=== PATIENT | female | born 1940 | race African-American/Black ===

== ENCOUNTER 2017-06-09 16:08 | Emergency (ER) | payer MEDICARE, OTHER ==
[~2017-06-09] VITALS: Ht 167.6 cm; Wt 77.0 kg
[2017-06-09 16:10] VITALS: BP 157/77; PULSE 97; RESP 20; TEMP 98.7; O2SAT 98
[2017-06-09] MEDS ORDERED: DORZ2SOL15 EACH EYE (17:04)
[2017-06-09] MEDS ORDERED: LATA0.002 EACH EYE (17:04)
[2017-06-09 18:15] VITALS: BP_SYST 166; BP_SYST 172; BP_DIAS 80; BP_DIAS 83; PULSE 76; RESP 18; O2SAT 99
--- NOTE | 2017-06-09 18:30 | PD ---
HPI Chief Complaint: Altered Mental Status Time Seen by Provider: 18:28 Travel History International Travel<30 days: No Contact w/Intl Traveler<30days: No Traveled to known affect area: No History of Present Illness HPI Patient is 76-year-old female brought in by her nephew and a friend for evaluation of altered mental status. Patient has a history of dementia, for the last week or so she has become more confused, they report visual hallucinations. Grandson states that she gets lost in the home and sees things that aren't there. He reports a history of the same. They saw the primary doctor 1 week ago and discussed this, they were advised to come to the emergency department for evaluation if she got worse. Patient has not had any injury or trauma, no fevers. Patient denies any complaints at this time. PFS Past Medical History Dementia: Yes Diabetes: Yes Patient Takes Glucophage: No Diminished Hearing: No Glaucoma: Yes ?: Not Past Surgical History Hysterectomy: Yes Social History Alcohol Use: No Tobacco Use: No Substance Use: No Allergies-Medications (Allergen,Severity, Reaction): Coded Allergies: No Known Allergies (Unverified , 06/09/17) Reported Meds & Prescriptions Reported Meds & Active Scripts Active Reported Dorzolamide-Timolol Opth Drops 22.3-6.8 Mg/Ml Soln 1 Drop EACH EYE BID Latanoprost Opth Drops (Latanoprost) 0.005% Drops 1 Drop EACH EYE HS Refrigerate until opened. Review of Systems ROS Limitations: Poor Historian Except as stated in HPI: all other systems reviewed are Neg Psychiatric: Positive: Disorder of Thought Physical Exam Narrative GENERAL: Well-developed, well-nourished, alert elderly female. Resting comfortably in no acute distress. SKIN: Warm and dry. HEAD: Atraumatic. Normocephalic. EYES: Pupils equal and round. No scleral icterus. No injection or drainage. ENT: No nasal bleeding or discharge. Mucous membranes pink and moist. NECK: Trachea midline. No JVD. CARDIOVASCULAR: Regular rate and rhythm. RESPIRATORY: No accessory muscle use. Clear to auscultation. Breath sounds equal bilaterally. GASTROINTESTINAL: Abdomen soft, non-tender, nondistended. Hepatic and splenic margins not palpable. MUSCULOSKELETAL: Extremities without clubbing, cyanosis, or edema. No obvious deformities. NEUROLOGICAL: Awake and alert, oriented 2. No obvious cranial nerve deficits. Motor grossly within normal limits. Five out of 5 muscle strength in the arms and legs. Normal speech. PSYCHIATRIC: Appropriate mood and affect; insight and judgment impaired. Data Data Last Documented VS Vital Signs Date Time Temp Pulse Resp B/P Pulse Ox O2 Delivery O2 Flow Rate FiO2 06/09/17 18:15 76 18 166/83 99 Room Air 06/09/17 16:10 98.7 Orders Complete Blood Count With Diff (06/09/17 18:16) Comprehensive Metabolic Panel (06/09/17 18:16) Urinalysis - C+S If Indicated (06/09/17 18:16) Ecg Monitoring (06/09/17 18:16) Iv Access Insert/Monitor (06/09/17 18:16) Cath For Specimen (06/09/17 18:16) Oximetry (06/09/17 18:16) Chest, Single Ap (06/09/17 ) Ct Brain W/O Iv Contrast(Rout) (06/09/17 ) Ct Thorax/ Chest W Iv Contrast (06/09/17 ) Thyroid Stimulating Hormone (06/09/17 19:23) Iohexol 350 Inj (Omnipaque 350 Inj) (06/09/17 19:47) Labs Laboratory Tests Test 06/09/17 06/09/17 18:15 19:35 White Blood Count 5.1 TH/MM3 Red Blood Count 4.15 MIL/MM3 Hemoglobin 11.5 GM/DL Hematocrit 36.2 % Mean Corpuscular Volume 87.2 FL Mean Corpuscular Hemoglobin 27.8 PG Mean Corpuscular Hemoglobin 31.9 % Concent Red Cell Distribution Width 17.3 % Platelet Count 275 TH/MM3 Mean Platelet Volume 7.7 FL Neutrophils (%) (Auto) 52.6 % Lymphocytes (%) (Auto) 32.0 % Monocytes (%) (Auto) 11.0 % Eosinophils (%) (Auto) 3.4 % Basophils (%) (Auto) 1.0 % Neutrophils # (Auto) 2.7 TH/MM3 Lymphocytes # (Auto) 1.6 TH/MM3 Monocytes # (Auto) 0.6 TH/MM3 Eosinophils # (Auto) 0.2 TH/MM3 Basophils # (Auto) 0.1 TH/MM3 CBC Comment DIFF FINAL Differential Comment Urine Color YELLOW Urine Turbidity CLEAR Urine pH 5.5 Urine Specific [place] 1.025 Urine Protein TRACE mg/dL Urine Glucose (UA) NEG mg/dL Urine Ketones NEG mg/dL Urine Occult Blood MOD Urine Nitrite NEG Urine Bilirubin NEG Urine Urobilinogen 2.0 MG/DL Urine Leukocyte Esterase NEG Urine RBC 30 /hpf Urine WBC 2 /hpf Urine Mucus FEW /lpf Microscopic Urinalysis Comment CATH-CULT NOT IND Sodium Level 142 MEQ/L Potassium Level 3.3 MEQ/L Chloride Level 105 MEQ/L Carbon Dioxide Level 29.7 MEQ/L Anion Gap 7 MEQ/L Blood Urea Nitrogen 22 MG/DL Creatinine 0.66 MG/DL Estimat Glomerular Filtration 106 ML/MIN Rate Random Glucose 96 MG/DL Calcium Level 8.9 MG/DL Total Bilirubin 0.3 MG/DL Aspartate Amino Transf 31 U/L (AST/SGOT) Alanine Aminotransferase 40 U/L (ALT/SGPT) Alkaline Phosphatase 220 U/L Total Protein 7.4 GM/DL Albumin 2.9 GM/DL Thyroid Stimulating Hormone 0.855 uIU/ML [facility] Medical Decision Making Medical Screen Exam Complete: Yes Emergency Medical Condition: Yes Interpretation(s) Last Impressions Head CT 06/09/17 0000 Signed Impressions: Service Date/Time: Friday, June 09, 2017 18:47 - CONCLUSION: Normal examination for a patient of this age. Arnulfo Andrew MD Chest X-Ray 06/09/17 0000 Signed Impressions: Service Date/Time: Friday, June 09, 2017 18:23 - CONCLUSION: There does appear to be mass effect on the trachea deviated to the right of midline. This can be further characterize with CT chest with contrast if indicated. Arnulfo Andrew MD Last Impressions Head CT 06/09/17 0000 Signed Impressions: Service Date/Time: Friday, June 09, 2017 18:47 - CONCLUSION: Normal examination for a patient of this age. Arnulfo Andrew MD Chest X-Ray 06/09/17 0000 Signed Impressions: Service Date/Time: Friday, June 09, 2017 18:23 - CONCLUSION: There does appear to be mass effect on the trachea deviated to the right of midline. This can be further characterize with CT chest with contrast if indicated. Arnulfo Andrew MD Laboratory Tests Test 06/09/17 18:15 White Blood Count 5.1 TH/MM3 Red Blood Count 4.15 MIL/MM3 Hemoglobin 11.5 GM/DL Hematocrit 36.2 % Mean Corpuscular Volume 87.2 FL Mean Corpuscular Hemoglobin 27.8 PG Mean Corpuscular Hemoglobin 31.9 % Concent Red Cell Distribution Width 17.3 % Platelet Count 275 TH/MM3 Mean Platelet Volume 7.7 FL Neutrophils (%) (Auto) 52.6 % Lymphocytes (%) (Auto) 32.0 % Monocytes (%) (Auto) 11.0 % Eosinophils (%) (Auto) 3.4 % Basophils (%) (Auto) 1.0 % Neutrophils # (Auto) 2.7 TH/MM3 Lymphocytes # (Auto) 1.6 TH/MM3 Monocytes # (Auto) 0.6 TH/MM3 Eosinophils # (Auto) 0.2 TH/MM3 Basophils # (Auto) 0.1 TH/MM3 CBC Comment DIFF FINAL Differential Comment Urine Color YELLOW Urine Turbidity CLEAR Urine pH 5.5 Urine Specific [place] 1.025 Urine Protein TRACE mg/dL Urine Glucose (UA) NEG mg/dL Urine Ketones NEG mg/dL Urine Occult Blood MOD Urine Nitrite NEG Urine Bilirubin NEG Urine Urobilinogen 2.0 MG/DL Urine Leukocyte Esterase NEG Urine RBC 30 /hpf Urine WBC 2 /hpf Urine Mucus FEW /lpf Microscopic Urinalysis Comment CATH-CULT NOT IND Sodium Level 142 MEQ/L Potassium Level 3.3 MEQ/L Chloride Level 105 MEQ/L Carbon Dioxide Level 29.7 MEQ/L Anion Gap 7 MEQ/L Blood Urea Nitrogen 22 MG/DL Creatinine 0.66 MG/DL Estimat Glomerular Filtration 106 ML/MIN Rate Random Glucose 96 MG/DL Calcium Level 8.9 MG/DL Total Bilirubin 0.3 MG/DL Aspartate Amino Transf 31 U/L (AST/SGOT) Alanine Aminotransferase 40 U/L (ALT/SGPT) Alkaline Phosphatase 220 U/L Total Protein 7.4 GM/DL Albumin 2.9 GM/DL Vital Signs Date Time Temp Pulse Resp B/P Pulse Ox O2 Delivery O2 Flow Rate FiO2 06/09/17 18:15 76 18 166/83 99 Room Air 06/09/17 16:10 98.7 97 20 157/77 98 Room Air Differential Diagnosis Progression of dementia versus UTI versus infection versus metabolic abnormality versus other Narrative Course Patient is a 76-year-old female brought into the emergency room for evaluation of increased confusion. Patient's vital signs are stable, family at bedside. IV access established, patient was on telemetry monitoring and continuous pulse oximetry. CT scan the brain is normal for patient's age. Urinalysis is unremarkable Chemistry with a potassium of 3.3, BUN 22, alkaline phosphatase 220 CBC is unremarkable. Chest x-ray read by the radiologist shows mass effect, trachea deviated to the right of midline, this could be further characterized with CT of the chest if needed. CT scan of the chest ordered and pending. Likely a thyroid issue. TSH also ordered and pending. CT scan of the chest shows enlarged heterogeneous multinodular thyroid with a large inhomogeneous lobulated left thyroid mass demonstrated mass effect on the trachea. There is nonspecific adenopathy in the mediastinum and hilar regions and also shows atherosclerosis. CT scan of the chest was read by the radiologist. Patient's airway is intact, there is no stridor noted on exam. Patient is well oxygenated on room air. Patient was given a copy to take to primary care provider. She should have outpatient follow-up with ENT. Also discussed with caregiver at bedside that there were no acute findings other than the thyroid masses. Again they were encouraged to follow up with primary care provider. They were encouraged to return to emergency department today be any new or worsening symptoms. Patient stable for discharge. Diagnosis Primary Impression: Thyroid mass of unclear etiology Additional Impression: Dementia Qualified Code: F03.90 - Dementia without behavioral disturbance, unspecified dementia type Referrals: Primary Care Physician 2 days Patient Instructions: Dementia (ED), General Instructions Additional Instructions: Follow-up with your primary doctor to review CT scan results and for routine health care Return to emergency department for any new or worsening symptoms Med/Other Pt SpecificInfo: No Change to Meds Disposition: 01 DISCHARGE HOME Condition: Stable Kavitha Kiser Jun 09, 2017 18:30
[2017-06-09 18:44] LABS: BLOOD, URINE MOD (NEG); COMMENT (UR) CATH-CULT NOT IND; CULTURE IF INDICATED CATH CULTURE NOT IND; GLUCOSE,URINE NEG (NEG); KETONE, URINE NEG (NEG); MUCUS URINE FEW /lpf (OCC); NITRITE,URINE NEG (NEG); PH, URINE 5.5 (5.0-8.5); URINE COLOR YELLOW (YELLW/STRAW)
[2017-06-09 18:48] LABS: AUTOMATED NEUTROPHIL # 2.7 TH/MM3 (1.8-7.7); BASOPHIL # 0.1 TH/MM3 (0-0.2); EOSINOPHIL # 0.2 TH/MM3 (0-0.4); EOSINOPHIL % 3.4 % (0.0-4.0); HEMATOCRIT 36.2 % (35.0-46.0); HEMO FLAGS DIFF FINAL; LYMPHOCYTE # 1.6 TH/MM3 (1.0-4.8); MEAN CELL VOLUME 87.2 FL (80.0-100.0); MEAN CORPUSCULAR HEMOGLOBIN 27.8 PG (27.0-34.0); MEAN CORPUSCULAR HGB CONC 31.9 % (32.0-36.0); NEUT % 52.6 % (16.0-70.0); PLATELET COUNT 275 TH/MM3 (150-450); RED BLOOD COUNT 4.15 MIL/MM3 (4.00-5.30); RED CELL DISTRIBUTION WIDTH 17.3 % (11.6-17.2); WHITE BLOOD COUNT 5.1 TH/MM3 (4.0-11.0)
[2017-06-09 18:58] LABS: ALT (GPT) 40 U/L (10-53); ANION GAP 7 MEQ/L (5-15); AST (GOT) 31 U/L (15-37); BICARBONATE 29.7 MEQ/L (21.0-32.0); BLOOD UREA NITROGEN 22 MG/DL (7-18); CHLORIDE 105 MEQ/L (98-107); GLOMERULAR FILTRATION RATE 106 ML/MIN (>89); POTASSIUM 3.3 MEQ/L (3.5-5.1); SODIUM (NA) 142 MEQ/L (136-145)
[2017-06-09 19:01] LABS: ALKALINE PHOSPHATASE 220 U/L (45-117); TOTAL BILIRUBIN ADULT 0.3 MG/DL (0.2-1.0)
--- NOTE | 2017-06-09 19:06 | RADRPT ---
EXAM DATE/TIME: 06/09/2017 18:47 [facility] COMPARISON: No previous studies available for comparison. INDICATIONS : Altered mental status. RADIATION DOSE: 31.31 CTDIvol (mGy) MEDICAL HISTORY : Dementia. Diabetes mellitus type 2. SURGICAL HISTORY : Hysterectomy. ENCOUNTER: Initial ACUITY: 1 day PAIN SCALE: 0/10 LOCATION: cranial TECHNIQUE: Multiple contiguous axial images were obtained of the head. Using automated exposure control and adj ustment of the mA and/or kV according to patient size, radiation dose was kept as low as reasonably a chievable to obtain optimal diagnostic quality images. DICOM format image data is available electro nically for review and comparison. FINDINGS: CEREBRUM: The ventricles are normal for age. No evidence of midline shift, mass lesion, hemorrhage or acute in farction. No extra-axial fluid collections are seen. POSTERIOR FOSSA: The cerebellum and brainstem are intact. The 4th ventricle is midline. The cerebellopontine angle i s unremarkable. EXTRACRANIAL: The visualized portion of the orbits is intact. SKULL: The calvaria is intact. No evidence of skull fracture. CONCLUSION: Normal examination for a patient of this age. Arnulfo Andrew MD on June 09, 2017 at 19:05 Board Certified Radiologist. This report was verified electronically.
--- NOTE | 2017-06-09 19:09 | RADRPT ---
EXAM DATE/TIME: 06/09/2017 18:23 [facility] COMPARISON: No previous studies available for comparison. INDICATIONS : Cough. MEDICAL HISTORY : None. SURGICAL HISTORY : None. ENCOUNTER: Initial ACUITY: 1 day PAIN SCORE: 0/10 LOCATION: Bilateral upper chest FINDINGS: The heart size is normal. The lungs are clear. There is slight deviation of the trachea to the right of midline with increased density on the left of the trachea at the thoracic inlet. There is no defin ite patient rotation to account for this finding therefore a mass cannot be excluded, most likely thy roid etiology. This can be confirmed with CT scan if indicated. CONCLUSION: There does appear to be mass effect on the trachea deviated to the right of midline. This can be furt her characterize with CT chest with contrast if indicated. Arnulfo Andrew MD on June 09, 2017 at 19:07 Board Certified Radiologist. This report was verified electronically.
[2017-06-09] MEDS ORDERED: IOHEXOL 350 MG/ML 10 ML VIAL (for RAD DIAG) IV ONE (19:47)
--- NOTE | 2017-06-09 20:01 | RADRPT ---
EXAM DATE/TIME: 06/09/2017 19:46 [facility] COMPARISON: CHEST SINGLE AP, June 09, 2017, 18:23. INDICATIONS : Short of breath. IV CONTRAST: 70 cc Omnipaque 350 (iohexol) IV RADIATION DOSE: 6.44 CTDIvol (mGy) MEDICAL HISTORY : Dementia. Diabetes mellitus type 2. SURGICAL HISTORY : Hysterectomy. ENCOUNTER: Initial ACUITY: 1 day PAIN SCALE: 2/10 LOCATION: Bilateral chest TECHNIQUE: Volumetric scanning of the chest was performed. Using automated exposure control and adjustment of t he mA and/or kV according to patient size, radiation dose was kept as low as reasonably achievable to obtain optimal diagnostic quality images. DICOM format image data is available electronically for review and comparison. Follow-up recommendations for incidentally detected pulmonary nodules are based at a minimum on nodul e size and patient risk factors according to Fleischner Society Guidelines. FINDINGS: Minimal linear scarring or atelectasis at the left lung base. There is marked enlargement of the thyr oid with mass effect on the trachea deviated slightly to the right corresponding to the plain radiogr aphic findings. There is a large heterogeneous mass of the left thyroid lobe measuring 3.4 x 5.7 cm i n transverse and AP dimension. There is also a 1.4 cm right thyroid nodule and a 5.1 mm right thyroid nodule. There is subcarinal adenopathy up to 1.3 cm in short axis dimension, right and left hilar ad enopathy measuring 1.9 and 1.5 cm in short axis dimension respective. Atherosclerotic calcifications of the aorta are noted. Osseous structures are intact. Coronary artery calcification identified. CONCLUSION: 1. Enlarged heterogeneous multinodular thyroid with a large inhomogeneous lobulated left thyroid mass demonstrating mass effect on the trachea. 2. There is nonspecific adenopathy in the mediastinum and hilar regions. 3. Atherosclerosis. Arnulfo Andrew MD on June 09, 2017 at 19:58 Board Certified Radiologist. This report was verified electronically.
== END 2017-06-09 21:10 | disposition home or self-care (01) ==
LOC: NEPC 16:08
DX: R22.1 Localized swelling, mass and lump, neck (principal); R41.82 Altered mental status, unspecified; F03.90 Unspecified dementia, unspecified severity, without behavioral disturbance, psychotic disturbance, mood disturbance, and anxiety; E11.9 Type 2 diabetes mellitus without complications; H40.9 Unspecified glaucoma; Z79.899 Other long term (current) drug therapy
CPT/HCPCS: 70450; 71010; 71260; 80053; 81001; 84443; 85025; 99285; P9612; Q9967

== ENCOUNTER 2017-06-12 17:46 | Observation (INO) | payer OTHER ==
[~2017-06-12] VITALS: Ht 167.6 cm; Wt 57.7 kg
[~2017-06-12 17:46] MED LIST: DORZ2SOL15 EACH EYE; LATA0.002 EACH EYE
[2017-06-12 17:54] VITALS: BP 149/72; PULSE 99; RESP 14; TEMP 99.2; O2SAT 96
[2017-06-12] MEDS ORDERED: SODIUM CHLOR 0.9% 1000 ML INJ 1,000 ML IV SCH (18:14)
[2017-06-12] MEDS ORDERED: SODIUM CHLORIDE 0.9% FLUSH 5 ML FLUSH IV FLUSH PRN (18:15)
[2017-06-12] MEDS ORDERED: RISP2TAB2 PO (18:16)
--- NOTE | 2017-06-12 18:26 | PD ---
HPI Chief Complaint: Altered Mental Status Time Seen by Provider: 18:01 Travel History International Travel<30 days: No Contact w/Intl Traveler<30days: No Traveled to known affect area: No History of Present Illness HPI Patient is a 76-year-old female who is brought in by her grandson because she is hallucinating. Patient was seen at the [facility] 3 days ago and discharged home. She had a CT head, CT chest, chest x-ray, lab work that showed no acute abnormalities. The CT of her chest did show several thyroid masses, which family was informed of and advised follow-up with her PCP. Her grandson states she is still hallucinating. He says he cannot take care of her at home. She has no complaints. She denies any pain. Her grandson states that she said people in the house trying to shoot at her, that were not. PFSH Past Medical History Dementia: Yes Diabetes: Yes Diminished Hearing: No Glaucoma: Yes Past Surgical History Hysterectomy: Yes Social History Alcohol Use: No Tobacco Use: No Substance Use: No Allergies-Medications (Allergen,Severity, Reaction): Coded Allergies: Penicillin (Verified Allergy, Severe, 06/12/17) Reported Meds & Prescriptions Reported Meds & Active Scripts Active Reported Risperidone 2 Mg Tab 2 Mg PO HS Dorzolamide-Timolol Opth Drops 22.3-6.8 Mg/Ml Soln 1 Drop EACH EYE BID Latanoprost Opth Drops (Latanoprost) 0.005% Drops 1 Drop EACH EYE HS Refrigerate until opened. Review of Systems Except as stated in HPI: all other systems reviewed are Neg General / Constitutional: No: Fever, Chills HENT: No: Headaches, Lightheadedness Cardiovascular: No: Chest Pain or Discomfort Respiratory: No: Shortness of Breath Gastrointestinal: No: Nausea, Vomiting, Abdominal Pain Genitourinary: No: Dysuria Musculoskeletal: No: Myalgias Skin: No Rash, No Change in Pigmentation Neurologic: No: Weakness, Dizziness Physical Exam Narrative GENERAL: Awake and alert, in no acute distress. Has an odor of urine, unkept. SKIN: Focused skin assessment warm/dry. No rashes or signs of infection. HEAD: Atraumatic. Normocephalic. EYES: Pupils equal and round. No scleral icterus. ENT: Mucous membranes pink and moist. NECK: Trachea midline. No JVD. CARDIOVASCULAR: Regular rate and rhythm. No murmur appreciated. RESPIRATORY: No accessory muscle use. Clear to auscultation. Breath sounds equal bilaterally. GASTROINTESTINAL: Abdomen soft, non-tender, nondistended. MUSCULOSKELETAL: No obvious deformities. No clubbing. No cyanosis. No edema. NEUROLOGICAL: Awake and alert. No obvious cranial nerve deficits. Motor grossly within normal limits. Normal speech. PSYCHIATRIC: Appropriate mood and affect; insight and judgment normal. Data Data Last Documented VS Vital Signs Date Time Temp Pulse Resp B/P Pulse Ox O2 Delivery O2 Flow Rate FiO2 06/12/17 18:17 98 Room Air 06/12/17 17:54 99.2 99 14 149/72 Orders Complete Blood Count With Diff (06/12/17 18:14) Comprehensive Metabolic Panel (06/12/17 18:14) Creatine Kinase (Cpk) (06/12/17 18:14) Thyroid Stimulating Hormone (06/12/17 18:14) Urinalysis - C+S If Indicated (06/12/17 18:14) Ua Includes Microscopic (06/12/17 18:14) Blood Glucose (06/12/17 18:14) Ecg Monitoring (06/12/17 18:14) Iv Access Insert/Monitor (06/12/17 18:14) Oximetry (06/12/17 18:14) Sodium Chloride 0.9% Flush (Ns Flush) (06/12/17 18:15) Sodium Chlor 0.9% 1000 Ml Inj (Ns 1000 M (06/12/17 18:14) Cath For Specimen (06/12/17 18:14) Labs Laboratory Tests Test 06/12/17 06/12/17 18:15 18:35 White Blood Count 6.3 TH/MM3 Red Blood Count 4.06 MIL/MM3 Hemoglobin 11.8 GM/DL Hematocrit 34.8 % Mean Corpuscular Volume 85.8 FL Mean Corpuscular Hemoglobin 29.1 PG Mean Corpuscular Hemoglobin 33.9 % Concent Red Cell Distribution Width 16.2 % Platelet Count 266 TH/MM3 Mean Platelet Volume 8.4 FL Neutrophils (%) (Auto) 59.4 % Lymphocytes (%) (Auto) 24.1 % Monocytes (%) (Auto) 9.2 % Eosinophils (%) (Auto) 4.6 % Basophils (%) (Auto) 2.7 % Neutrophils # (Auto) 3.7 TH/MM3 Lymphocytes # (Auto) 1.5 TH/MM3 Monocytes # (Auto) 0.6 TH/MM3 Eosinophils # (Auto) 0.3 TH/MM3 Basophils # (Auto) 0.2 TH/MM3 CBC Comment DIFF FINAL Differential Comment Sodium Level 144 MEQ/L Potassium Level 3.7 MEQ/L Chloride Level 107 MEQ/L Carbon Dioxide Level 31.3 MEQ/L Anion Gap 6 MEQ/L Blood Urea Nitrogen 23 MG/DL Creatinine 0.78 MG/DL Estimat Glomerular Filtration 87 ML/MIN Rate Random Glucose 114 MG/DL Calcium Level 9.0 MG/DL Total Bilirubin 0.3 MG/DL Aspartate Amino Transf 48 U/L (AST/SGOT) Alanine Aminotransferase 49 U/L (ALT/SGPT) Alkaline Phosphatase 244 U/L Total Creatine Kinase 79 U/L Total Protein 7.8 GM/DL Albumin 2.9 GM/DL Urine Color YELLOW Urine Turbidity CLEAR Urine pH 5.0 Urine Specific [place] 1.026 Urine Protein NEG mg/dL Urine Glucose (UA) NEG mg/dL Urine Ketones NEG mg/dL Urine Occult Blood MOD Urine Nitrite NEG Urine Bilirubin NEG Urine Leukocyte Esterase NEG Urine RBC 50-99 /hpf Urine WBC 0-2 /hpf Urine Squamous Epithelial 0-5 /hpf Cells Urine Bacteria NONE /hpf Microscopic Urinalysis Comment CULT NOT INDICATED MDM Medical Decision Making Medical Screen Exam Complete: Yes Emergency Medical Condition: Yes Medical Record Reviewed: Yes Differential Diagnosis Electrolyte abnormality versus UTI versus dehydration versus dementia Narrative Course Patient is a 76-year-old female brought in by her grandson due to hallucinations. She had an extensive workup done 3 days ago that did not show show any acute findings. Parents was advised to follow up with PCP. Exam shows no acute abnormalities. Patient knows where she is, who she is, the month, but she thinks it's 2009. She knows president is Nithin lopez. IV established, labs sent. Patient given IV fluids. Grandson feels she is unsafe at home and that she needs 24-hour care. Labs show evidence of dehydration. Patient admitted for further management. Diagnosis Primary Impression: Dehydration Additional Impression: Failure to thrive in adult Admitting Information Admitting Physician Requests: Admit Condition: Stable Ama Osorio MD Jun 12, 2017 18:26
[2017-06-12 18:36] LABS: AUTOMATED NEUTROPHIL # 3.7 TH/MM3 (1.8-7.7); BASOPHIL # 0.2 TH/MM3 (0-0.2); BASOPHIL % 2.7 % (0.0-2.0); EOSINOPHIL # 0.3 TH/MM3 (0-0.4); EOSINOPHIL % 4.6 % (0.0-4.0); HEMATOCRIT 34.8 % (35.0-46.0); HEMO FLAGS DIFF FINAL; LYMPH % 24.1 % (9.0-44.0); LYMPHOCYTE # 1.5 TH/MM3 (1.0-4.8); MEAN CELL VOLUME 85.8 FL (80.0-100.0); MEAN CORPUSCULAR HEMOGLOBIN 29.1 PG (27.0-34.0); MEAN CORPUSCULAR HGB CONC 33.9 % (32.0-36.0); MONO % 9.2 % (0.0-8.0); NEUT % 59.4 % (16.0-70.0); PLATELET COUNT 266 TH/MM3 (150-450); RED BLOOD COUNT 4.06 MIL/MM3 (4.00-5.30); RED CELL DISTRIBUTION WIDTH 16.2 % (11.6-17.2); WHITE BLOOD COUNT 6.3 TH/MM3 (4.0-11.0)
[2017-06-12 18:43] LABS: CHLORIDE 107 MEQ/L (98-107); POTASSIUM 3.7 MEQ/L (3.5-5.1); SODIUM (NA) 144 MEQ/L (136-145)
[2017-06-12 18:43] LABS: GLUCOSE,URINE NEG (NEG); KETONE, URINE NEG (NEG); NITRITE,URINE NEG (NEG)
[2017-06-12 18:44] LABS: BLOOD, URINE MOD (NEG); URINE COLOR YELLOW (YELLW/STRAW)
[2017-06-12 18:46] LABS: ANION GAP 6 MEQ/L (5-15); BICARBONATE 31.3 MEQ/L (21.0-32.0)
[2017-06-12 18:47] LABS: BLOOD UREA NITROGEN 23 MG/DL (7-18)
[2017-06-12 18:49] LABS: ALT (GPT) 49 U/L (10-53)
[2017-06-12 18:50] LABS: WBC, URINE 0-2 /hpf (0-5)
[2017-06-12 18:50] LABS: AST (GOT) 48 U/L (15-37); GLOMERULAR FILTRATION RATE 87 ML/MIN (>89)
[2017-06-12 18:51] LABS: COMMENT (UR) CULT NOT INDICATED; CULTURE IF INDICATED CULT NOT INDICATED; SQUAMOUS EPITHELIAL CELL URINE 0-5 /hpf (0-5)
[2017-06-12 18:51] LABS: TOTAL BILIRUBIN ADULT 0.3 MG/DL (0.2-1.0)
[2017-06-12 18:52] LABS: ALKALINE PHOSPHATASE 244 U/L (45-117)
[2017-06-12 18:53] LABS: CREATINE KINASE 79 U/L (26-192)
[2017-06-12 19:12] VITALS: O2SAT 98
[2017-06-12] MEDS ORDERED: SODIUM CHLORIDE 0.9% FLUSH 10 ML FLUSH IV FLUSH PRN (19:15)
[2017-06-12] MEDS ORDERED: MAGNESIUM HYDROXIDE SUSP 30 ML CUP PO PRN (19:15)
[2017-06-12] MEDS ORDERED: LACTULOSE SYRUP 20 GM/30 ML CUP PO PRN (19:15)
[2017-06-12] MEDS ORDERED: ACETAMINOPHEN 325 MG TAB PO PRN (19:15)
[2017-06-12] MEDS ORDERED: BISACODYL 10 MG SUPP RECTAL PRN (19:15)
[2017-06-12] MEDS ORDERED: ONDANSETRON HCL 4 MG/2 ML VIAL IVP PRN (19:15)
[2017-06-12] MEDS ORDERED: SENNOSIDES 8.6 MG TAB PO PRN (19:15)
[2017-06-12 19:22] VITALS: BP 137/62; PULSE 88; RESP 16; O2SAT 99
[2017-06-12] MEDS: SODIUM CHLOR 0.9% 1000 ML INJ 1,000 ML IV SCH (20:06)
[2017-06-12] MEDS: DORZOLAMIDE/TIMOLOL OPTH SOLN 10 ML BTL EACH EYE SCH (20:50)
[2017-06-12] MEDS: risperiDONE 1 MG TAB PO SCH (20:50)
[2017-06-12] MEDS: LATANOPROST 0.005% OPHT SOLN 2.5 ML BTL EACH EYE SCH (20:50)
[2017-06-12] MEDS: SODIUM CHLORIDE 0.9% FLUSH 10 ML FLUSH IV FLUSH SCH (20:50)
[2017-06-12] MEDS: DOCUSATE SODIUM 50 MG/SENNA 8.6 MG TAB PO SCH (20:50)
[2017-06-12 20:51] VITALS: BP 158/84; PULSE 88; RESP 16; TEMP 98.8; O2SAT 96
[2017-06-13 00:03] VITALS: BP 118/63; PULSE 82; RESP 20; TEMP 98.9; O2SAT 100
[2017-06-13] MEDS: SODIUM CHLOR 0.9% 1000 ML INJ 1,000 ML IV SCH (06:04)
[2017-06-13 06:37] LABS: AUTOMATED NEUTROPHIL # 2.7 TH/MM3 (1.8-7.7); BASOPHIL # 0.1 TH/MM3 (0-0.2); BASOPHIL % 1.9 % (0.0-2.0); EOSINOPHIL # 0.3 TH/MM3 (0-0.4); EOSINOPHIL % 6.1 % (0.0-4.0); HEMATOCRIT 32.3 % (35.0-46.0); HEMO FLAGS DIFF FINAL; LYMPHOCYTE # 1.6 TH/MM3 (1.0-4.8); MEAN CELL VOLUME 86.2 FL (80.0-100.0); MEAN CORPUSCULAR HEMOGLOBIN 27.4 PG (27.0-34.0); MEAN CORPUSCULAR HGB CONC 31.8 % (32.0-36.0); PLATELET COUNT 225 TH/MM3 (150-450); RED BLOOD COUNT 3.74 MIL/MM3 (4.00-5.30); RED CELL DISTRIBUTION WIDTH 16.6 % (11.6-17.2); WHITE BLOOD COUNT 5.4 TH/MM3 (4.0-11.0)
[2017-06-13 06:59] LABS: CHLORIDE 113 MEQ/L (98-107); POTASSIUM 4.1 MEQ/L (3.5-5.1); SODIUM (NA) 149 MEQ/L (136-145)
[2017-06-13 07:15] LABS: ALKALINE PHOSPHATASE 194 U/L (45-117); ALT (GPT) 44 U/L (10-53); ANION GAP 10 MEQ/L (5-15); AST (GOT) 51 U/L (15-37); BICARBONATE 26.3 MEQ/L (21.0-32.0); BLOOD UREA NITROGEN 22 MG/DL (7-18); GLOMERULAR FILTRATION RATE 114 ML/MIN (>89); TOTAL BILIRUBIN ADULT 0.3 MG/DL (0.2-1.0)
[2017-06-13 08:00] VITALS: BP 148/78; PULSE 76; RESP 18; TEMP 97.9; O2SAT 100
[2017-06-13 08:02] LABS: POTASSIUM 3.9 MEQ/L (3.5-5.1)
[2017-06-13 08:05] LABS: BICARBONATE 28.7 MEQ/L (21.0-32.0)
[2017-06-13] MEDS: DORZOLAMIDE/TIMOLOL OPTH SOLN 10 ML BTL EACH EYE SCH ×2 (09:00→19:58)
[2017-06-13] MEDS: SODIUM CHLORIDE 0.9% FLUSH 10 ML FLUSH IV FLUSH SCH ×2 (09:00→19:58)
[2017-06-13] MEDS: DOCUSATE SODIUM 50 MG/SENNA 8.6 MG TAB PO SCH ×2 (09:14→19:59)
--- NOTE | 2017-06-13 09:49 | HHI.HP ---
HPI Service [facility] Primary Care Physician Leisa Chamberlain MD Admission Diagnosis dehydration Diagnoses: (1) Hypernatremia Diagnosis: Principal (2) Thyroid mass of unclear etiology Diagnosis: Principal (3) Azotemia Diagnosis: Principal (4) Abnormal liver enzymes Diagnosis: Principal (5) Dementia Diagnosis: Secondary Chief Complaint: Hallucinations Travel History International Travel<30 Days: No Contact w/Intl Traveler <30 Da: No Traveled to Known Affected Are: No History of Present Illness Written by Terry Cleveland, acting as scribe for Dr. Chakraborty on 06/13/17 at 09: 34. 76-year-old female with known history of dementia, diabetes, glaucoma who presented to hospital with her grandson because of hallucinations. Patient was evaluated in emergency department 3 days ago for similar symptoms. She had workup done with CT of the head, chest x-ray, chest CT with the abnormal findings to include thyroid mass, azotemia, liver enzyme elevation, protein malnutrition. Patient was recommended discharge and follow-up with her primary medical doctor. The patient did go home and patient brought back to emergency department yesterday because of continued hallucinations. Patient with mild worsening of her renal functions with decrease of GFR from 106>87. Patient was given IV fluid emergency department recommended observation for further recommendations and management. Patient does indicate that she has hallucinations which are visual in nature. She indicates that she is seeing good and bad people. People are shooting other people and having sex with other people. She does not indicate that she knows the people that she is seen. She denies that these people are seen on the TV. Review of Systems Psychiatric: COMPLAINS OF: Hallucinations Except as stated in HPI: all other systems reviewed are Neg Past Family Social History Past Medical History Dementia Glaucoma Diabetes Hyperlipidemia Past Surgical History Bilateral hip replacement Hysterectomy Reported Medications Reported Meds & Active Scripts Active Reported Risperidone 2 Mg Tab 2 Mg PO HS Dorzolamide-Timolol Opth Drops 22.3-6.8 Mg/Ml Soln 1 Drop EACH EYE BID Latanoprost Opth Drops (Latanoprost) 0.005% Drops 1 Drop EACH EYE HS Refrigerate until opened. Allergies: Coded Allergies: Penicillin (Verified Allergy, Severe, 06/12/17) Family History Reviewed and unremarkable Social History Patient lives in a home with her daughter and grandson. She ambulates with a walker. Patient denies any tobacco, alcohol or illicit drugs Physical Exam Vital Signs Vital Signs Date Time Temp Pulse Resp B/P Pulse Ox O2 Delivery O2 Flow Rate FiO2 06/13/17 08:00 97.9 76 18 148/78 100 06/13/17 04:00 06/13/17 00:03 98.9 82 20 118/63 100 06/12/17 20:51 98.8 88 16 158/84 96 06/12/17 19:22 88 16 137/62 99 Room Air 06/12/17 19:12 98 Room Air 06/12/17 18:17 98 Room Air 06/12/17 17:54 99.2 99 14 149/72 96 Physical Exam GENERAL: Well-developed, well-nourished, in no acute distress. alert and orientated to person, month, place, states it is 2010 HEENT: Head is normocephalic without any lesions or masses noted. Facial features are symmetric. Eyes: Pupils equal round reactive to light. Extraocular muscles are intact. Conjunctivae were clear. Oropharyngeal: Pharynx without any erythema edema. Tongue is midline without deviation. Buccal mucosa is moist without any masses or lesions NECK: Supple with obvious left thyroid enlargement. Trachea midline no deviation. No JVD, no bruits are appreciated CARDIAC: Regular rhythm, regular rate. S1/S2 are heard. No murmurs gallops or rubs. LUNGS: Clear to auscultation bilaterally. No wheeze, rhonchi or rales. No use of accessory muscles on inspiration or expiration. ABDOMEN: Soft, nontender. Nondistended. Bowel sounds heard in all 4 quadrants. No organomegaly or masses. Negative rebound, negative guarding EXTREMITIES: No edema, pulses are equal bilaterally. No cyanosis or clubbing NEUROLOGY: Mood and affect appear appropriate. Cranial nerves II through XII grossly intact. Muscle strength 5/5 in upper and lower extremities bilaterally. Deep tendon reflexes are 2+ in upper and lower extremities bilaterally. Laboratory Laboratory Tests Test 06/12/17 06/12/17 06/13/17 06/13/17 18:15 18:35 05:42 07:48 White Blood Count 6.3 5.4 Red Blood Count 4.06 3.74 Hemoglobin 11.8 10.3 Hematocrit 34.8 32.3 Mean Corpuscular Volume 85.8 86.2 Mean Corpuscular Hemoglobin 29.1 27.4 Mean Corpuscular Hemoglobin 33.9 31.8 Concent Red Cell Distribution Width 16.2 16.6 Platelet Count 266 225 Mean Platelet Volume 8.4 8.6 Neutrophils (%) (Auto) 59.4 49.0 Lymphocytes (%) (Auto) 24.1 30.0 Monocytes (%) (Auto) 9.2 13.0 Eosinophils (%) (Auto) 4.6 6.1 Basophils (%) (Auto) 2.7 1.9 Neutrophils # (Auto) 3.7 2.7 Lymphocytes # (Auto) 1.5 1.6 Monocytes # (Auto) 0.6 0.7 Eosinophils # (Auto) 0.3 0.3 Basophils # (Auto) 0.2 0.1 CBC Comment DIFF FINAL DIFF FINAL Differential Comment Sodium Level 144 149 146 Potassium Level 3.7 4.1 3.9 Chloride Level 107 113 112 Carbon Dioxide Level 31.3 26.3 28.7 Anion Gap 6 10 5 Blood Urea Nitrogen 23 22 21 Creatinine 0.78 0.62 0.62 Estimat Glomerular Filtration 87 114 114 Rate Random Glucose 114 89 87 Calcium Level 9.0 8.3 8.3 Total Bilirubin 0.3 0.3 Aspartate Amino Transf 48 51 (AST/SGOT) Alanine Aminotransferase 49 44 (ALT/SGPT) Alkaline Phosphatase 244 194 Total Creatine Kinase 79 Total Protein 7.8 6.3 Albumin 2.9 2.2 Thyroid Stimulating Hormone 0.830 3rd Gen Urine Color YELLOW Urine Turbidity CLEAR Urine pH 5.0 Urine Specific [place] 1.026 Urine Protein NEG Urine Glucose (UA) NEG Urine Ketones NEG Urine Occult Blood MOD Urine Nitrite NEG Urine Bilirubin NEG Urine Leukocyte Esterase NEG Urine RBC 50-99 Urine WBC 0-2 Urine Squamous Epithelial 0-5 Cells Urine Bacteria NONE Microscopic Urinalysis Comment CULT NOT INDICATED Result Diagram: 06/13/17 0542 06/13/17 0748 Assessment and Plan Assessment and Plan //Hypernatremia Unknown etiology this time, could be from decreased by mouth intake, dehydration Continue monitor sodium level, start half-normal saline if needed //Azotemia, acute Unknown chronicity of patient's renal functions, records indicate patient with previous GFR 106 Continue IV fluids Obtain renal/bladder ultrasound Monitor renal function //Abnormal liver enzymes Unknown etiology, patient does have thyroid mass, they could be possible underlying malignancy We'll obtain liver ultrasound //Large inhomogeneous lobulated left thyroid mass This is a CT scan finding from chest CT, it does have mass effect on the trachea TSH 0.83 Check total T3, free T4 Consult medical oncology //Dementia with hallucinations Risperdal has been continued Check ammonia level //History of diabetes Monitor glucose level and start sliding scale insulin if needed Check hemoglobin A1c //Glaucoma Continue eyedrops //DVT prevention Sequential compression devices Discussed Condition With This note was transcribed by scribe [Terry Cleveland]. I, Dr. Fernando Chakraborty personally performed the history, physical exam, and medical decision making; and confirmed the accuracy of the information in the transcribed note. Authenticated by Dr. Fernando Chakraborty on 06/13/17 at 13:08. Problem Qualifiers (1) Dementia: Terry Cleveland Jun 13, 2017 09:49 Fernando Chakraborty MD Jun 13, 2017 13:09
[2017-06-13] MEDS ORDERED: PNEUMOCOCCAL POLYVALENT INJ 25 MCG/0.5 ML SYR IM ONE (10:00)
[2017-06-13 12:00] VITALS: BP 143/76; PULSE 84; RESP 18; TEMP 98.5; O2SAT 100
[2017-06-13 13:51] LABS: PROTHROMBIN TIME - PATIENT 11.5 SEC (9.8-11.6)
[2017-06-13 14:00] VITALS: BP 144/75; PULSE 74; RESP 18; TEMP 97.2; O2SAT 99
[2017-06-13] MEDS ORDERED: KETOCONAZOLE 2% SHAMPOO 120 ML BTL TOPICAL ONE (14:00)
[2017-06-13 16:00] VITALS: BP 144/75; PULSE 74; RESP 18; TEMP 97.2; O2SAT 99
--- NOTE | 2017-06-13 16:21 | RADRPT ---
EXAM DATE/TIME: 06/13/2017 15:14 [place] COMPARISON: No previous studies available for comparison. EXTERNAL COMPARISON : [facility], CT ABDOMEN AND PELVIS, March 15, 2015 INDICATIONS : Increased lab values. MEDICAL HISTORY : Hypercholesterolemia. Glaucoma. Dementia. Incontinence. Diabetes. Hallucinations. SURGICAL HISTORY : Hysterectomy. Eye surgery. Bilateral hip replacement. ENCOUNTER: Initial ACUITY: 1 day PAIN SCORE: 0/10 LOCATION: Bilateral abdomen. MEASUREMENTS: LIVER: 16.8 cm length COMMON DUCT: 2 mm RIGHT KIDNEY: 11.4 x 5.2 x 4.0 cm LEFT KIDNEY: 9.0 x 4.3 x 4.5 cm SPLEEN: 8.0 cm length AORTA: 1.7cm maximal FINDINGS: LIVER: Slightly nodular without focal lesion or ductal dilatation. Hepatopedal flow. COMMON DUCT: No intraluminal mass or stone visualized. GALLBLADDER: Contains no stones, demonstrates no wall thickening or pericholecystic fluid. PANCREAS: The visualized portions are within normal limits. RIGHT KIDNEY: No hydronephrosis, stone or mass. LEFT KIDNEY: No hydronephrosis or mass. Echogenic focus measures 3 mm. SPLEEN: No focal lesion. AORTA: Non aneurysmal. Atherosclerotic changes. IVC: Within normal limits. CONCLUSION: 1. Liver is slightly nodular could be related to early morphologic changes of cirrhosis. 2. Echogenic focus in the left kidney could be nonobstructing calculus versus cortical calcification measuring 3 mm. 3. No evidence for cholelithiasis. Jori Ryan MD on June 13, 2017 at 16:17 Board Certified Radiologist. This report was verified electronically.
[2017-06-13] MEDS: LATANOPROST 0.005% OPHT SOLN 2.5 ML BTL EACH EYE SCH (19:58)
[2017-06-13] MEDS: risperiDONE 1 MG TAB PO SCH (19:59)
[2017-06-13 20:00] VITALS: BP 164/93; PULSE 80; RESP 20; TEMP 98.4; O2SAT 100
[2017-06-14] VITALS: BP 146/90; PULSE 75; RESP 20; TEMP 98.4; O2SAT 96
[2017-06-14] MEDS ORDERED: cloNIDine HCL 0.1 MG TAB PO PRN (07:45)
[2017-06-14 08:00] VITALS: BP 160/94; PULSE 78; RESP 17; TEMP 98.6; O2SAT 97
--- NOTE | 2017-06-14 08:34 | PD.PSY.CON ---
Provisional Diagnosis Admission Date Jun 12, 2017 at 19:13 History of Present Illness Service Psychiatry Consult Requested By Primary Care Physician Leisa Chamberlain MD Past Family Social History Coded Allergies: Penicillin (Verified Allergy, Severe, 06/12/17) Reported Medications Risperidone 2 Mg Tab2 Mg PO HS #30 TAB Ref 0 06/12/17 Dorzolamide-Timolol Opth Drops 22.3-6.8 Mg/Ml Soln1 Drop EACH EYE BID Ref 0 06/09/17 Latanoprost Opth Drops 0.005% Drops1 Drop EACH EYE HS #2.5 ML Ref 0 Refrigerate until opened. 06/09/17 Current Medications Medications (Trade) Dose Ordered Sig/Bindu Route Start Time Stop Time Status Last Admin (NS Flush) 2 ml UNSCH PRN IV FLUSH 06/12/17 19:15 (NS Flush) 2 ml BID IV FLUSH 06/12/17 21:00 06/13/17 19:58 (Zofran Inj) 4 mg Q6H PRN IVP 06/12/17 19:15 (Tylenol) 650 mg Q6H PRN PO 06/12/17 19:15 (Susan-Colace) 1 tab BID PO 06/12/17 21:00 06/13/17 19:59 (Milk Of Magnesia Liq) 30 ml Q12H PRN PO 06/12/17 19:15 (Senokot) 17.2 mg Q12H PRN PO 06/12/17 19:15 (Dulcolax Supp) 10 mg DAILY PRN RECTAL 06/12/17 19:15 (Lactulose Liq) 30 ml DAILY PRN PO 06/12/17 19:15 (Cosopt 2-0.5% Opth Soln) 1 drop BID EACH EYE 06/12/17 21:00 06/13/17 19:58 (Xalatan 0.005% Opth Soln) 1 drop HS EACH EYE 06/12/17 21:00 06/13/17 19:58 (risperDAL) 2 mg HS PO 06/12/17 21:00 06/13/17 19:59 (Catapres) 0.1 mg Q6H PRN PO 06/14/17 07:45 Physical Exam Vital Signs Vital Signs Date Time Temp Pulse Resp B/P Pulse Ox O2 Delivery O2 Flow Rate FiO2 06/14/17 00:00 98.4 75 20 146/90 96 06/12/17 19:22 Room Air I/O 06/13/17 06/13/17 06/13/17 07:59 15:59 23:59 Intake Total 725 ml 60 ml Output Total 950 ml Balance -225 ml 60 ml Lab Results Laboratory Tests Test 06/12/17 06/12/17 06/13/17 06/13/17 18:15 18:35 05:42 07:48 White Blood Count 6.3 5.4 Red Blood Count 4.06 3.74 Hemoglobin 11.8 10.3 Hematocrit 34.8 32.3 Mean Corpuscular Volume 85.8 86.2 Mean Corpuscular Hemoglobin 29.1 27.4 Mean Corpuscular Hemoglobin 33.9 31.8 Concent Red Cell Distribution Width 16.2 16.6 Platelet Count 266 225 Mean Platelet Volume 8.4 8.6 Neutrophils (%) (Auto) 59.4 49.0 Lymphocytes (%) (Auto) 24.1 30.0 Monocytes (%) (Auto) 9.2 13.0 Eosinophils (%) (Auto) 4.6 6.1 Basophils (%) (Auto) 2.7 1.9 Neutrophils # (Auto) 3.7 2.7 Lymphocytes # (Auto) 1.5 1.6 Monocytes # (Auto) 0.6 0.7 Eosinophils # (Auto) 0.3 0.3 Basophils # (Auto) 0.2 0.1 CBC Comment DIFF FINAL DIFF FINAL Differential Comment Sodium Level 144 149 146 Potassium Level 3.7 4.1 3.9 Chloride Level 107 113 112 Carbon Dioxide Level 31.3 26.3 28.7 Anion Gap 6 10 5 Blood Urea Nitrogen 23 22 21 Creatinine 0.78 0.62 0.62 Estimat Glomerular Filtration 87 114 114 Rate Random Glucose 114 89 87 Calcium Level 9.0 8.3 8.3 Total Bilirubin 0.3 0.3 Aspartate Amino Transf 48 51 (AST/SGOT) Alanine Aminotransferase 49 44 (ALT/SGPT) Alkaline Phosphatase 244 194 Total Creatine Kinase 79 Total Protein 7.8 6.3 Albumin 2.9 2.2 Thyroid Stimulating Hormone 0.830 3rd Gen Urine Color YELLOW Urine Turbidity CLEAR Urine pH 5.0 Urine Specific [place] 1.026 Urine Protein NEG Urine Glucose (UA) NEG Urine Ketones NEG Urine Occult Blood MOD Urine Nitrite NEG Urine Bilirubin NEG Urine Leukocyte Esterase NEG Urine RBC 50-99 Urine WBC 0-2 Urine Squamous Epithelial 0-5 Cells Urine Bacteria NONE Microscopic Urinalysis Comment CULT NOT INDICATED Result Diagram: 06/13/17 0542 06/13/17 0748 Assessment & Plan Problem List: (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 Patient describes the visual hallucinations as different people, adult and kids, coming inside her room, with very colorful clothing. Patient seems to be insightful about the nature of these perceptual disturbances, but at times he is difficult for her to define what is real and what is not. Patient seems to be very distressed and concerned about this perceptual disturbances. She denies auditory hallucinations. Patient clarifies that the visual hallucinations are 100% of the times mute. Patient denies mood symptoms, she reports the most of the time she is a happy person, denies anhedonia, denies hopelessness, denies helplessness, she denies suicidal and homicidal ideation. Patient reports anxiety secondary to the hallucinations. Interrupted sleep at night. Hallucinations can happen during the day and also at night. 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 Will order an EKG for QTc interval baseline. Will split Risperdal to 1 mg twice a day. A neurology consult is recommended to rule out epileptogenic activity in the visual cortex and other neurological conditions that can account for visual hallucinations. Extensive support, motivation and psychoeducation provided. Patient definitely will benefit of a voluntary psychiatric admission in the med psych unit to help with visual hallucinations. We'll follow-up. ICD Code: F29 Assessment & Plan Estimated LOS: Sincere Marie MD Jun 14, 2017 08:34
[2017-06-14] MEDS: DOCUSATE SODIUM 50 MG/SENNA 8.6 MG TAB PO SCH (08:48)
[2017-06-14] MEDS: SODIUM CHLORIDE 0.9% FLUSH 10 ML FLUSH IV FLUSH SCH (08:49)
[2017-06-14] MEDS: DORZOLAMIDE/TIMOLOL OPTH SOLN 10 ML BTL EACH EYE SCH (08:49)
[2017-06-14 10:40] LABS: AUTOMATED NEUTROPHIL # 2.9 TH/MM3 (1.8-7.7); BASOPHIL # 0.1 TH/MM3 (0-0.2); EOSINOPHIL # 0.3 TH/MM3 (0-0.4); EOSINOPHIL % 6.8 % (0.0-4.0); HEMATOCRIT 36.1 % (35.0-46.0); HEMO FLAGS DIFF FINAL; LYMPH % 28.4 % (9.0-44.0); LYMPHOCYTE # 1.4 TH/MM3 (1.0-4.8); MEAN CORPUSCULAR HEMOGLOBIN 28.7 PG (27.0-34.0); MEAN CORPUSCULAR HGB CONC 33.3 % (32.0-36.0); MONO % 8.5 % (0.0-8.0); NEUT % 54.3 % (16.0-70.0); PLATELET COUNT 257 TH/MM3 (150-450); RED CELL DISTRIBUTION WIDTH 15.8 % (11.6-17.2); WHITE BLOOD COUNT 5.1 TH/MM3 (4.0-11.0)
[2017-06-14 10:59] LABS: ALKALINE PHOSPHATASE 229 U/L (45-117); ANION GAP 6 MEQ/L (5-15); AST (GOT) 36 U/L (15-37); BICARBONATE 32.4 MEQ/L (21.0-32.0); BLOOD UREA NITROGEN 13 MG/DL (7-18); CHLORIDE 104 MEQ/L (98-107); GLOMERULAR FILTRATION RATE 104 ML/MIN (>89); POTASSIUM 3.3 MEQ/L (3.5-5.1); SODIUM (NA) 142 MEQ/L (136-145); TOTAL BILIRUBIN ADULT 0.3 MG/DL (0.2-1.0)
[2017-06-14] MEDS ORDERED: CLON.1 PO (11:09)
[2017-06-14 11:20] LABS: ALT (GPT) 41 U/L (10-53)
[2017-06-14 12:00] VITALS: BP 108/68; PULSE 74; RESP 16; TEMP 97.7; O2SAT 96
[2017-06-14] MEDS ORDERED: POTASSIUM CHLORIDE 10 MEQ CONTROLLED RELEASE TAB PO ONE (12:00)
--- NOTE | 2017-06-14 12:04 | HHI.PR ---
Subjective Remarks Patient seen this morning around 10 AM. Says she is feeling all right. Denies any chest pain or shortness of breath. Patient says she does feel as if she will benefit from inpatient psychiatric admission. Discussed with the grandson who agrees. Objective Vital Signs Date Time Temp Pulse Resp B/P Pulse Ox O2 Delivery O2 Flow Rate FiO2 06/14/17 08:00 98.6 78 17 160/94 97 06/14/17 00:00 98.4 75 20 146/90 96 06/13/17 20:00 98.4 80 20 164/93 100 06/13/17 16:00 97.2 74 18 144/75 99 06/13/17 12:00 98.5 84 18 143/76 100 I/O 06/13/17 06/13/17 06/13/17 06/14/17 06/14/17 06/14/17 06:59 14:59 22:59 06:59 14:59 22:59 Intake Total 725 ml 60 ml 60 ml Output Total 950 ml 0 ml Balance -225 ml 60 ml 60 ml Intake Oral 725 ml 60 ml 60 ml Output Urine Total 950 ml 0 ml # Voids 3 1 0 # Bowel Movements 0 0 0 Result Diagram: 06/14/17 1030 06/14/17 1030 Imaging Last Impressions Abdomen Ultrasound 06/13/17 0000 Signed Impressions: Service Date/Time: Tuesday, June 13, 2017 15:14 - CONCLUSION: 1. Liver is slightly nodular could be related to early morphologic changes of cirrhosis. 2. Echogenic focus in the left kidney could be nonobstructing calculus versus cortical calcification measuring 3 mm. 3. No evidence for cholelithiasis. Jori Ryan MD Objective Remarks GENERAL: patient lying in bed. Appears comfortable. Alert and oriented 3. SKIN: Warm and dry. HEAD: Normocephalic. EYES: No scleral icterus. No injection or drainage. NECK: Supple, trachea midline. No JVD or lymphadenopathy. CARDIOVASCULAR: Regular rate and rhythm without murmurs, gallops, or rubs. RESPIRATORY: Breath sounds equal bilaterally. No accessory muscle use. GASTROINTESTINAL: Abdomen soft, non-tender, nondistended. MUSCULOSKELETAL: No cyanosis, or edema. BACK: Nontender without obvious deformity. No CVA tenderness. A/P Assessment and Plan //Hypernatremia. Likely was from normal saline. Resolved. //Azotemia, acute //Hematuria. Unknown chronicity of patient's renal functions, records indicate patient with previous GFR 106 Continue IV fluids Obtain renal/bladder ultrasound. Reviewed. Likely secondary to recent kidney stone. Creatinine reviewed and stable. Monitor renal function -She'll need to follow-up with primary care for renal ultrasound findings. //Abnormal liver enzymes Unknown etiology, patient does have thyroid mass, they could be possible underlying malignancy We'll obtain liver ultrasound //Large inhomogeneous lobulated left thyroid mass This is a CT scan finding from chest CT, it does have mass effect on the trachea TSH 0.83 total T3, free T4, both WNL Consult medical oncology. Follow-up recommendations. Appreciate assistance. //Dementia with hallucinations Risperdal has been continued Check ammonia level, which is within normal limits. //History of diabetes Monitor glucose level and start sliding scale insulin if needed Check hemoglobin A1c //Glaucoma Continue eyedrops //DVT prevention Sequential compression devices Discharge Planning discharged to inpatient psychiatry. will need medicine and oncology to follow Fernando Chakraborty MD Jun 14, 2017 12:04
[2017-06-14 12:52] LABS: MAGNESIUM 1.6 MG/DL (1.5-2.5)
[2017-06-14 15:30] VITALS: BP 125/72; PULSE 67; RESP 16; TEMP 98; O2SAT 99
[2017-06-14 18:45] LABS: HEMOGLOBIN A1a 1.1 %; HEMOGLOBIN A1b 0.8 %; HEMOGLOBIN Ao 85.2 %; HEMOGLOBIN LA1C 2.1 %; HEMOGLOBIN P3 3.8 %
--- NOTE | 2017-06-16 19:05 | HHI.DS ---
Discharge Summary Admission Date Jun 12, 2017 at 19:13 Discharge Date: Jun 14, 2017 Admitting Diagnosis dehydration (1) Hypernatremia ICD Code: E87.0 Diagnosis: Principal (2) Thyroid mass of unclear etiology ICD Code: E07.89 Diagnosis: Principal (3) Azotemia ICD Code: R79.89 Diagnosis: Principal (4) Abnormal liver enzymes ICD Code: R74.8 Diagnosis: Principal (5) Dementia ICD Code: F03.90 Diagnosis: Secondary Procedures none Brief History - From Admission Written by Terry Cleveland, acting as scribe for Dr. Chakraborty on 06/13/17 at 09: 34. 76-year-old female with known history of dementia, diabetes, glaucoma who presented to hospital with her grandson because of hallucinations. Patient was evaluated in emergency department 3 days ago for similar symptoms. She had workup done with CT of the head, chest x-ray, chest CT with the abnormal findings to include thyroid mass, azotemia, liver enzyme elevation, protein malnutrition. Patient was recommended discharge and follow-up with her primary medical doctor. The patient did go home and patient brought back to emergency department yesterday because of continued hallucinations. Patient with mild worsening of her renal functions with decrease of GFR from 106>87. Patient was given IV fluid emergency department recommended observation for further recommendations and management. Patient does indicate that she has hallucinations which are visual in nature. She indicates that she is seeing good and bad people. People are shooting other people and having sex with other people. She does not indicate that she knows the people that she is seen. She denies that these people are seen on the TV. CBC/BMP: 06/14/17 1030 06/14/17 1030 Significant Findings Laboratory Tests Test 06/14/17 10:30 Monocytes (%) (Auto) 8.5 % (0.0-8.0) Eosinophils (%) (Auto) 6.8 % (0.0-4.0) Potassium Level 3.3 MEQ/L (3.5-5.1) Carbon Dioxide Level 32.4 MEQ/L (21.0-32.0) Random Glucose 141 MG/DL (74-106) Alkaline Phosphatase 229 U/L (45-117) Albumin 2.5 GM/DL (3.4-5.0) Imaging Last Impressions Abdomen Ultrasound 06/13/17 0000 Signed Impressions: Service Date/Time: Wednesday, June 13, 2017 15:14 - CONCLUSION: 1. Liver is slightly nodular could be related to early morphologic changes of cirrhosis. 2. Echogenic focus in the left kidney could be nonobstructing calculus versus cortical calcification measuring 3 mm. 3. No evidence for cholelithiasis. Jori Ryan MD Hospital Course //Hypernatremia. Likely was from normal saline. Resolved. //Azotemia, acute //Hematuria. Unknown chronicity of patient's renal functions, records indicate patient with previous GFR 106 Continue IV fluids Obtain renal/bladder ultrasound. Reviewed. Likely secondary to recent kidney stone. Creatinine reviewed and stable. Monitor renal function -She'll need to follow-up with primary care for renal ultrasound findings. //Abnormal liver enzymes Unknown etiology, patient does have thyroid mass, they could be possible underlying malignancy We'll obtain liver ultrasound //Large inhomogeneous lobulated left thyroid mass This is a CT scan finding from chest CT, it does have mass effect on the trachea TSH 0.83 total T3, free T4, both WNL Consult medical oncology. Follow-up recommendations. Appreciate assistance. //Dementia with hallucinations Risperdal has been continued Check ammonia level, which is within normal limits. //History of diabetes Monitor glucose level and start sliding scale insulin if needed Check hemoglobin A1c //Glaucoma Continue eyedrops //DVT prevention Sequential compression devices Pt Condition on Discharge: Good Discharge Disposition: Disc to Psych Care Fac Discharge Time: <= 30 minutes Discharge Instructions DIET: Follow Instructions for: Heart Healthy Diet Activities you can perform: Regular-No Restrictions Other Activity Instructions: ambulate with supervision Follow up Referrals: Oncology - 2-3 Days New Medications: Clonidine (Catapres) 0.1 Mg Tab 0.1 MG PO Q6H PRN SBP> OR = 180, DBP> OR = 100 Days 30 TAB Continued Medications: Dorzolamide-Timolol Opth Drops (Dorzolamide-Timolol Opth Drops) 22.3-6.8 Mg/Ml Soln 1 DROP EACH EYE BID Glaucoma Ref 0 BOTTLE Latanoprost Opth Drops (Latanoprost Opth Drops) 0.005% Drops 1 DROP EACH EYE HS Refrigerate until opened. Glaucoma #2.5 Ref 0 ML Risperidone (Risperidone) 2 Mg Tab 2 MG PO HS #30 Ref 0 TAB Fernando Chakraborty MD Jun 16, 2017 19:05
== END 2017-06-14 15:33 ==
LOC: UNDODISOB → PHED 17:46 → UNDOADMOB 19:13 → PHEDA 19:13 → PH3A 19:55 → UNDODISOB 06-14 15:33
PROVIDERS: ADMIT Internal Medicine; ATTEND Internal Medicine
DX: E87.0 Hyperosmolality and hypernatremia (principal); E86.0 Dehydration; R22.1 Localized swelling, mass and lump, neck; R62.7 Adult failure to thrive; R79.89 Other specified abnormal findings of blood chemistry; R74.8 Abnormal levels of other serum enzymes; F03.90 Unspecified dementia, unspecified severity, without behavioral disturbance, psychotic disturbance, mood disturbance, and anxiety; R44.3 Hallucinations, unspecified; E11.9 Type 2 diabetes mellitus without complications; E78.5 Hyperlipidemia, unspecified; E78.00 Pure hypercholesterolemia, unspecified; H40.9 Unspecified glaucoma; Z96.643 Presence of artificial hip joint, bilateral
CPT/HCPCS: 80053; 81001; 82550; 84443; 85025; 99285; G0378; J7030; P9612; 76700; 80048; 82140; 82977; 83036; 83735; 84439; 84480; 85610; 90471; 90732; G0009

== ENCOUNTER 2017-06-14 16:42 | Inpatient (IN) | payer OTHER, MEDICARE ==
[~2017-06-14 16:42] MED LIST changes: +CLON.1 PO; +RISP2TAB2 PO
[2017-06-14 16:58] VITALS: BP 139/68; PULSE 90; RESP 22; TEMP 98; O2SAT 95
[2017-06-14 18:17] VITALS: BP 154/81; PULSE 86; RESP 16; TEMP 98; O2SAT 98
[2017-06-14] MEDS ORDERED: MAGNESIUM HYDROXIDE SUSP 30 ML CUP PO PRN (19:30)
[2017-06-14] MEDS ORDERED: ALUMINUM/MAGNESIUM/SIMETH 30 ML CUP PO PRN (19:30)
[2017-06-15 06:03] VITALS: BP 167/79; PULSE 71; RESP 15; TEMP 98.7; O2SAT 99
--- NOTE | 2017-06-15 11:08 | PD.ONC.PN ---
Subjective Subjective Remarks Hematology service was asked to see this patient yesterday when she was at the [facility]. I went in to see her in the evening, but she had been transferred. Her chart has been reviewed, CT imaging has been reviewed as well. I will be in later today to see her on 4 for a full consultation. Reason for consultation: Large Thyroid Mass. Objective Data Date Time Temp Pulse Resp B/P Pulse Ox O2 Delivery O2 Flow Rate FiO2 06/15/17 06:03 98.7 71 15 167/79 99 06/14/17 18:17 98.0 86 16 154/81 98 06/14/17 16:58 98.0 90 22 139/68 95 06/15/17 06/15/17 06/15/17 06:59 14:59 22:59 Intake Total 240 ml Balance 240 ml Objective Remarks GENERAL: Well-nourished, well-developed patient. SKIN: Warm and dry. HEAD: Normocephalic. EYES: No scleral icterus. No injection or drainage. NECK: Supple, trachea midline. No JVD or lymphadenopathy. LYMPHATIC: No adenopathy. CARDIOVASCULAR: Regular rate and rhythm without murmurs. RESPIRATORY: Breath sounds equal bilaterally. No accessory muscle use. GASTROINTESTINAL: Abdomen soft, non-tender, nondistended. EXTREMITIES: No cyanosis, or edema. MUSCULOSKELETAL: Adequate muscle tone. NEUROLOGICAL: No obvious focal deficit. Awake, alert, and oriented x3. PSYCHIATRIC: Appropriate mood and affect; insight and judgment normal. Delgado Kuhn MD Jun 15, 2017 11:08
[2017-06-15 11:12] LABS: ANION GAP 7 MEQ/L (5-15); BLOOD UREA NITROGEN 19 MG/DL (7-18); CHLORIDE 103 MEQ/L (98-107); GLOMERULAR FILTRATION RATE 105 ML/MIN (>89); SODIUM (NA) 139 MEQ/L (136-145)
[2017-06-15 11:16] LABS: HDL CHOLESTEROL 51.1 MG/DL (40.0-60.0); LDL CHOLESTEROL 141 MG/DL (0-99)
--- NOTE | 2017-06-15 13:42 | HHI.HP ---
Provisional Diagnosis Admission Date Jun 14, 2017 at 16:42 [place] I. 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 Express and informed consent means consent voluntarily given in writing, by a competent person, after sufficient explanation and disclosure of the subject matter involved to enable the person to make a knowing and willful decision without any element of force, fraud, deceit, duress, or other form of constraint or coercion. This person is 18 years of age or older, is not now known to be incompetent to consent to treatment with a guardian advocate, and does not have a health care surrogate or proxy currently making medical treatment decisions. I have found this person to be one of the following: [X] Competent to provide express and informed consent, as defined above, for voluntary admission to this facility and is competent to provide express and informed consent for treatment. He/she has the consistent capacity to make well reasoned, willful, and knowing decisions concerning his or her medical or mental health treatment. The person fully and consistently understands the purpose of the admission for examination/placement and is fully capable of personally exercising all rights assured [place] [] Incompetent to provide express and informed consent to voluntary admission, and this is incompetent to provide express and informed consent to treatment. The person must be transferred to involuntary status and a petition for a guardian advocate filed with the Circuit Court. [] Refusing to provide express and informed consent to voluntary admission but is competent to provide express and informed consent for treatment. The person must be discharged or transferred to involuntary status. Form shall be completed within 24 hours of a person's arrival at the receiving facility and filed in the clinical record of each person: 1. Admitted on a voluntary basis 2. Permitted to provide express and informed consent to his/her own treatment 3. Allowed to transfer from involuntary to voluntary status 4. Prior to permitting a person to consent to his or her own treatment after having been previously found incompetent to consent to treatment. History of Present Illness Capacity: Has Capacity HPI 06/14/2017 The patient is a 76-year-old woman, domiciled with her son in [facility], , supported by [facility], with secondary history of dementia , no previous psychiatric hospitalizations, she is on Risperdal 2 mg at bedtime , no previous suicidal attempts, medical history of diabetes, partially blind, glaucoma who presented to hospital with her grandson because of hallucinations. Patient was evaluated in emergency department 3 days ago for similar symptoms. She had workup done with CT of the head, chest x-ray, chest CT with the abnormal findings to include thyroid mass, azotemia, liver enzyme elevation , protein malnutrition. Patient was recommended discharge and follow-up with her primary medical doctor. The patient did go home and patient brought back to emergency department yesterday because of continued hallucinations. Patient with mild worsening of her renal functions with decrease of GFR from 106>87. Patient was given IV fluid emergency department recommended observation for further recommendations and management. Patient was consulted to psychiatry to manage perceptual disturbances. On psychiatric evaluation today patient is calm , cooperative and very pleasant. Patient reports good mood, she denies depressive symptoms, patient is future oriented, she says that she is a happy person. However patient says that in the last 3-4 months she has been having frequent episodes of visual hallucinations that has been very distressing and frightening for her. Patient says that she understand that she has dementia, but she knows that these hallucinations are not right.. She indicates that she is seeing good and bad people. They have very colorful clothes. Some of them are adults and another kids, People are shooting other people and having sex with other people. She does not indicate that she knows the people that she is seen. She reports that these people are mute. She denies auditory hallucinations. She denies suicidal and homicidal ideation. Patient is partially oriented in time, she says that todays June 14, 2009. She says that she is at her home, but she knows that we are in [facility]. However , patient is very coherent and relevant and logical in her conversation. No paranoia, no delirium, no attention deficit, no agitation, no aggressive behavior, no disorganized behavior of thoughts are present. Patient denies the use of drugs and alcohol. 06/15/2017 on psychiatric evaluation today patient is states that she is happy, today's her birthday. She reports good mood, denies depressive symptoms, she denies anxiety at this moment. Patient says that she has had a long life and her life has been very happy. She doesn't have any pain or distress at this moment. She denies suicidal and homicidal ideation, but she continued to report episodes of perceptual disturbances which she sees people coming inside her room. Patient says that she does seem fairly anxious about them. However, as per nurses patient has been witnessed talking to people, upset, screaming to them. This morning she was found with some food around her mouth and she says that "several bad kids did that to me". Patient is fully oriented 3, no attention deficit, no fluctuation of consciousness, no gross cognitive impairment present. Review of Systems Constitutional: DENIES: Diaphoretic episodes, Fatigue, Fever, Weight gain, Weight loss, Chills, Dizziness, Change in appetite, Night Sweats Endocrine: DENIES: Abnorml menstrual pattern, Heat/cold intolerance, Polydipsia , Polyuria, Polyphagia Eyes: COMPLAINS OF: Blurred vision Ears, nose, mouth, throat: DENIES: Tinnitus, Hearing loss, Vertigo, Nasal discharge, Oral lesions, Throat pain, Hoarseness, Ear Pain, Running Nose, Epistaxis, Sinus Pain, Toothache, Odynophagia Respiratory: DENIES: Apneas, Cough, Snoring, Wheezing, Hemoptysis, Sputum production, Shortness of breath Cardiovascular: DENIES: Chest pain, Palpitations, Syncope, Dyspnea on Exertion , PND, Lower Extremity Edema, Orthopnea, Claudication Gastrointestinal: DENIES: Abdominal pain, Black stools, Bloody stools, Constipation, Diarrhea, Nausea, Vomiting, Difficulty Swallowing, Anorexia Musculoskeletal: DENIES: Joint pain, Muscle aches, Stiffness, Joint Swelling, Back pain, Neck pain Integumentary: DENIES: Abnormal pigmentation, Pruritus, Rash, Nail changes, Breast masses, Breast skin changes, Nipple discharge Hematologic/lymphatic: DENIES: Bruising, Lymphadenopathy Immunologic/allergic: DENIES: Eczema, Urticaria Neurologic: DENIES: Abnormal gait, Headache, Localized weakness, Paresthesias, Seizures, Speech Problems, Tremor, Poor Balance Psychiatric: COMPLAINS OF: Hallucinations (visual hallucinations), DENIES: Anxiety, Confusion, Mood changes, Depression, Agitation, Suicidal Ideation, Homicidal Ideation, Delusions Past Psych History Violence risk - others (6 mos) Increased Violence risk - self (6 mos) Increased Substance Abuse History Drugs/Alcohol past 12 months Patient denies the use of alcohol and drugs Past Family Social History Coded Allergies: Penicillin (Verified Allergy, Severe, 06/12/17) Active Scripts Clonidine (Catapres)0.1 Mg Tab0.1 Mg PO Q6H PRN (SBP> OR = 180, DBP> OR = 100) 30 Days Prov:Fernando Chakraborty MD 06/14/17 Reported Medications Risperidone 2 Mg Tab2 Mg PO HS #30 TAB Ref 0 06/12/17 Dorzolamide-Timolol Opth Drops 22.3-6.8 Mg/Ml Soln1 Drop EACH EYE BID Ref 0 06/09/17 Latanoprost Opth Drops 0.005% Drops1 Drop EACH EYE HS #2.5 ML Ref 0 Refrigerate until opened. 06/09/17 Current Medications Medications (Trade) Dose Ordered Sig/Bindu Route Start Time Stop Time Status Last Admin (Ativan) 0.5 mg Q12H PRN PO 06/14/17 19:30 (Ativan Inj) 0.5 mg Q12H PRN IM 06/14/17 19:30 (Tylenol) 650 mg Q4H PRN PO 06/14/17 19:30 (Milk Of Magnesia Liq) 30 ml DAILY PRN PO 06/14/17 19:30 (Mag-Al Plus Susp Liq) 30 ml Q6H PRN PO 06/14/17 19:30 Patient's Strengths (min. 2) Insight of her hallucination Physical Exam Vital Signs Vital Signs Date Time Temp Pulse Resp B/P Pulse Ox O2 Delivery O2 Flow Rate FiO2 06/15/17 06:03 98.7 71 15 167/79 99 I/O 06/14/17 06/14/17 06/15/17 08:00 16:00 00:00 Intake Total 480 ml Balance 480 ml Mental Status Examination Appearance -Americans elderly woman, age appearing, good hygiene, calm and cooperative Speech: Unremarkable Orientation: x3 Thought Process: Logical, Goal Directed Thought Content: Unremarkable Hallucination Type: Visual Attention and Concentration: Good Suicidal Ideation: No Previous Suicide Attempts: No Homicidal Ideation: No Previous Homicide Attempts: No Judgment: Poor Affect: Good Mood: Appropriate Motor Activity: Normal gait Assessment & Plan Problem List: (1) Rakesh Bonnet syndrome Assessment & Plan: On psychiatric evaluation today the patient reports about 3 months of increased in severity, frequency and intensity, very vivid, anxiety provoking, ego-dystonic visual hallucinations. Patient describes the visual hallucinations as different people, adult and kids, coming inside her room, with very colorful clothing. Patient seems to be insightful about the nature of these perceptual disturbances, but at times he is difficult for her to define what is real and what is not. Patient seems to be very distressed and concerned about this perceptual disturbances. She denies auditory hallucinations. Patient clarifies that the visual hallucinations are 100% of the times mute. Patient denies mood symptoms, she reports the most of the time she is a happy person, denies anhedonia, denies hopelessness, denies helplessness, she denies suicidal and homicidal ideation. Patient reports anxiety secondary to the hallucinations. Interrupted sleep at night. Hallucinations can happen during the day and also at night. 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 Will split Risperdal to 1 mg twice a day. A neurology consult is recommended to rule out epileptogenic activity in the visual cortex and other neurological conditions that can account for visual hallucinations. Extensive support, motivation and psychoeducation provided. Patient definitely will benefit of a voluntary psychiatric admission in the med psych unit to help with visual hallucinations. ICD Code: H53.16 Assessment & Plan Estimated LOS: Sincere Marie MD Jun 15, 2017 13:42
[2017-06-15] MEDS: risperiDONE 1 MG TAB PO SCH ×2 (14:19→20:22)
--- NOTE | 2017-06-15 14:48 | PD.CONS ---
HPI Service [facility] Consult Requested By Psychiatry team Reason for Consult Assist with ongoing Medical management Primary Care Physician No Primary Care Physician Diagnoses: History of Present Illness Written by Rhea Hong, acting as scribe for Dr. Goff on 06/15/17 at 14: 09. Patient is a 76 year old female with primary medical history of dementia, DM, glaucoma who came in to [facility] brought in by her grandson secondary to hallucinations. As per review records, patient was worked up CT of the head, chest x-ray, chest CT with findings of thyroid mass, septemia, liver enzyme elevation, protein malnutrition. She was transferred to inpatient psychiatry unit for further evaluation of hallucinations. Consulted for continued medical management. Patient seen and examined today. Reports she is doing well. Reports she continues to have visual hallucinations were and she is seeing people. Denies any auditory hallucinations. Denies any suicidal ideation, homicide ideation. Patient states she has been seeing people for about a month now. She also states that her vision has been changing that sometimes sees with blurriness. Denies headache, dizziness, unilateral weakness. Denies chest pain, palpitations. Denies SOB, dyspnea. Denies fevers, chills, nausea, vomiting, diarrhea. Denies dysuria. Review of Systems Except as stated in HPI: all other systems reviewed are Neg Past Family Social History Allergies: Coded Allergies: Penicillin (Verified Allergy, Severe, 06/12/17) Past Medical History Thyroid mass Glaucoma HTN History of diabetes Dementia Past Surgical History Bilateral knee replacements Hip replacement Reported Medications Reported Meds & Active Scripts Active Catapres (Clonidine) 0.1 Mg Tab 0.1 Mg PO Q6H PRN 30 Days Reported Risperidone 2 Mg Tab 2 Mg PO HS Dorzolamide-Timolol Opth Drops 22.3-6.8 Mg/Ml Soln 1 Drop EACH EYE BID Latanoprost Opth Drops (Latanoprost) 0.005% Drops 1 Drop EACH EYE HS Refrigerate until opened. Active Ordered Medications Current Medications Medications (Trade) Dose Ordered Sig/Bindu Route Start Time Stop Time Status Last Admin (Ativan) 0.5 mg Q12H PRN PO 06/14/17 19:30 (Ativan Inj) 0.5 mg Q12H PRN IM 06/14/17 19:30 (Tylenol) 650 mg Q4H PRN PO 06/14/17 19:30 (Milk Of Magnesia Liq) 30 ml DAILY PRN PO 06/14/17 19:30 (Mag-Al Plus Susp Liq) 30 ml Q6H PRN PO 06/14/17 19:30 (Catapres) 0.1 mg Q6H PRN PO 06/15/17 14:00 (Xalatan 0.005% Opth Soln) 1 drop HS EACH EYE 06/15/17 21:00 (risperDAL) 1 mg Q12HR PO 06/15/17 14:00 Family History Denies any family history of diabetes, thyroid disease Social History Patient lives with grandson and daughter Denies alcohol use, last alcohol use was 25 years ago only on occasions Denies tobacco use Denies illicit drug use Physical Exam Vital Signs Vital Signs Date Time Temp Pulse Resp B/P Pulse Ox O2 Delivery O2 Flow Rate FiO2 06/15/17 06:03 98.7 71 15 167/79 99 06/14/17 18:17 98.0 86 16 154/81 98 06/14/17 16:58 98.0 90 22 139/68 95 Physical Exam GENERAL: This is a well-nourished, well-developed patient, in no apparent distress. SKIN: Warm and dry. HEAD: Atraumatic. Normocephalic. EYES: Extraocular motions intact. No scleral icterus. No injection or drainage. ENT: Nose without bleeding. Throat without erythema. Uvula midline. Airway patent. NECK: Trachea midline. Right neck mass palpable, left also has slightly palpable mass CARDIOVASCULAR: Regular rate and rhythm without murmurs, gallops, or rubs. RESPIRATORY: Clear to auscultation. Breath sounds equal bilaterally. No wheezes , rales, or rhonchi. GASTROINTESTINAL: Abdomen soft, non-tender, nondistended. Bowel sounds active 4 MUSCULOSKELETAL: Extremities without clubbing, cyanosis, or edema. NEUROLOGICAL: Awake and alert. Oriented to person and place. Motor and sensory grossly within normal limits. Five out of 5 muscle strength in all muscle groups. Normal speech. Laboratory Laboratory Tests Test 06/15/17 10:22 Sodium Level 139 Potassium Level 4.0 Chloride Level 103 Carbon Dioxide Level 29.0 Anion Gap 7 Blood Urea Nitrogen 19 Creatinine 0.66 Estimat Glomerular Filtration 105 Rate Random Glucose 83 Calcium Level 8.7 Triglycerides Level 77 Cholesterol Level 207 LDL Cholesterol 141 HDL Cholesterol 51.1 Cholesterol/HDL Ratio 4.05 Result Diagram: 06/15/17 1022 Assessment and Plan Problem List: (1) Dementia ICD Code: F03.90 Status: Acute (2) Azotemia ICD Code: R79.89 Status: Acute (3) Abnormal liver enzymes ICD Code: R74.8 Status: Acute (4) Thyroid mass of unclear etiology ICD Code: E07.89 Status: Acute Assessment and Plan Patient is a 76 year old female with primary medical history of dementia, DM, glaucoma who came in to [facility] brought in by her grandson secondary to hallucinations. As per review records, patient was worked up CT of the head, chest x-ray, chest CT with findings of thyroid mass, septemia, liver enzyme elevation, protein malnutrition. She was transferred to inpatient psychiatry unit for further evaluation of hallucinations. Consulted for continued medical management. Visual hallucination, dementia - Managed by psychiatry team - May have induced by dementia or Rakesh Bonnet syndrome secondary to blurring vision from glaucoma Azotemia, acute - Unknown chronicity of patient's renal functions, records indicate patient with previous GFR 106 - Patient was given IV fluids - Abdominal ultrasound showed echogenic focus in the left kidney could be nonobstructing calculus versus cortical calcification measuring 3 mL - Improving BUN, creatinine 0.66, EGFR 105 Abnormal liver enzymes - Unknown etiology, patient does have thyroid mass, they could be possible underlying malignancy - Abdominal ultrasound showed slightly nodular liver without focal lesion or ductal dilatation could be related to early morphologic changes of cirrhosis - Trend LFTs Large inhomogeneous lobulated left thyroid mass - This is a CT scan finding from chest CT, it does have mass effect on the trachea - TSH 0.83 - total T3, free T4, both WNL - Consult medical oncology. Follow-up recommendations. Appreciate assistance. History of diabetes - Patient states that she was on medication prior but was discontinued. - Hemoglobin A1c 5.4 - Follow-up in 6 months with PCP Glaucoma - Continue eyedrops latanoprost DVT prop early ambulation This note was transcribed by azul [Rhea Hong]. I, Dr. Dante Goff personally performed the history, physical exam, and medical decision making; and confirmed the accuracy of the information in the transcribed note. Authenticated by Dr. Dante Goff on 06/15/17 at 1415. Code Status Full code Discussed Condition With Patient, nursing Rhea Omalley Jun 15, 2017 14:48 Dante Goff MD Jun 15, 2017 15:58
[2017-06-15 16:31] LABS: HEMOGLOBIN A1a 1.1 %; HEMOGLOBIN A1b 0.8 %; HEMOGLOBIN Ao 85.5 %; HEMOGLOBIN F 1.1 %; HEMOGLOBIN LA1C 1.8 %; HEMOGLOBIN P3 3.8 %
[2017-06-15] MEDS: LORazepam 2 MG/ML VIAL - age > 65 yrs IM PRN (17:31)
[2017-06-15] MEDS: cloNIDine HCL 0.1 MG TAB PO PRN (18:18)
[2017-06-15 18:22] VITALS: BP 181/94; PULSE 92; RESP 16; TEMP 99; O2SAT 95
--- NOTE | 2017-06-15 18:38 | MB ---
cc: KITTY SANCHES MD DATE OF CONSULTATION 06/15/17 1941 REASON FOR CONSULTATION Hallucinations. HISTORY OF PRESENT ILLNESS The patient is a 76-year-old woman who lives with her son. She has a history of dementia, glaucoma and diabetes who comes in because grandson stated she has been having hallucinations. It has been going on for a few days now. In the ED, she had a workup with a CT of the head, chest x-ray, chest CT. In the ER, she was recommended to follow up with her primary care. She went home, came back to the ED because of continuation of hallucinations. I am asked to evaluate her as well. The patient is laying in bed with staff assistance. They are trying to get out to go to the bedside commode. She is pleasant and verbal. PAST MEDICAL HISTORY As stated MEDICATIONS Active medicines are 1. Clonidine. 2. Ophthalmic drops 3. Dorzolamide 4. Latanoprost 5. 6. Risperidone. ALLERGIES PENICILLIN SOCIAL HISTORY She lives with her son. PHYSICAL EXAMINATION VITAL SIGNS: Temperature 98.7, pulse 71, respiratory rate 15, blood pressure 167/79. NECK: Supple. No appreciable carotid bruits. HEART: Regular. She is awake and alert. She knows today is her birthday. She knows she is at the hospital. Her speech otherwise is fluent. Pupils are slightly reactive. They are 1 mm down to 0.5. Fundi cannot be visualized at bedside. Extraocular muscles are normal. Visual clark cannot be assessed. She cannot count fingers appropriately. She states she sees things, but when I asked her in more detail what color gloves are on the staff next to her, she cannot answer correctly. Motor hennessy - she moves everything freely. There is no drift or leg lag. Toes are downgoing. DTRs are 1+. Sensory normal. Gait is withheld due to her vision. Vitals are stable. LABORATORY DATA Reviewed. She only has a chemistry with cholesterol 207, triglycerides 77, LDL 141. IMAGING STUDIES There is no imaging thus far. IMPRESSION A 77-year-old woman with hallucinations. 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 Recommend getting an EEG and, if no contraindication, let us get an MRI of the brain. Let us make sure she has not had any infarcts. Continue treating her for her hallucinations per psychiatry. Further recommendations will be made accordingly. MD VISHAL Morales/ /4:29 PM /6:26 PM
[2017-06-15 19:35] VITALS: BP 189/91; PULSE 110; RESP 16; TEMP 99.1; O2SAT 97
[2017-06-15 19:40] VITALS: BP 189/91; PULSE 110; RESP 16; TEMP 99.1; O2SAT 97
[2017-06-15] MEDS: LATANOPROST 0.005% OPHT SOLN 2.5 ML BTL EACH EYE SCH (20:22)
[2017-06-15 20:37] VITALS: BP 171/81; PULSE 96; RESP 16; TEMP 99.2; O2SAT 99
[2017-06-16] VITALS (8 sets, daily range): BP systolic 112–213; BP diastolic 70–110; PULSE 68–98; RESP 16–18; TEMP 98–99.2; O2SAT 95–97
[2017-06-16] MEDS: cloNIDine HCL 0.1 MG TAB PO PRN ×3 (05:02→16:32)
[2017-06-16] MEDS: LORazepam 0.5 MG TAB age > 65 yrs PO PRN (05:02)
[2017-06-16] MEDS: risperiDONE 1 MG TAB PO SCH ×2 (08:03→22:47)
--- NOTE | 2017-06-16 11:13 | HHI.PR ---
Subjective Remarks Follow-up visit visual hallucination, dementia, DM, glaucoma. Patient seen and examined today. Tearful and very confused. States that she had a bad night that she was taken to another hospital and has seen different doctors and she doesn't know what is going on. Patient reassurance provided and the patient calmed down. States she is doing okay but she is very afraid of what is going on. States visual hallucination has been diminished compared to yesterday but continues to have. Denies any auditory hallucinations. Patient was seen by neurology and plan for MRI and EEG to be done today. Denies pain and discomfort. Denies SOB/ dyspnea. Denies chest pain, palpitations, headaches, dizziness. Denies fevers, chills, n/v/d. Objective Vitals Vital Signs Date Time Temp Pulse Resp B/P Pulse Ox O2 Delivery O2 Flow Rate FiO2 06/16/17 10:12 81 18 188/89 06/16/17 05:20 99.2 89 17 209/100 95 06/16/17 00:39 98.0 98 162/97 97 06/15/17 20:37 99.2 96 16 171/81 99 06/15/17 19:40 99.1 110 16 189/91 97 06/15/17 19:35 99.1 110 16 189/91 97 06/15/17 18:22 99.0 92 16 181/94 95 I/O 06/15/17 06/15/17 06/15/17 06/16/17 06/16/17 06/16/17 07:00 15:00 23:00 07:00 15:00 23:00 Intake Total 720 ml 600 ml 720 ml Balance 720 ml 600 ml 720 ml Intake Oral 720 ml 600 ml 720 ml # Voids 2 4 Result Diagram: 06/15/17 1022 Objective Remarks GENERAL: This is a well-nourished, well-developed patient, in no apparent distress. SKIN: Warm and dry. HEAD: Atraumatic. Normocephalic. EYES: No scleral icterus. No injection or drainage. ENT: Nose without bleeding. Throat without erythema. Uvula midline. Airway patent. NECK: Trachea midline. Right neck mass palpable, left also has slightly palpable mass CARDIOVASCULAR: Regular rate and rhythm without murmurs, gallops, or rubs. RESPIRATORY: Diminished bases. No wheezes, rales, or rhonchi. GASTROINTESTINAL: Abdomen soft, non-tender, nondistended. Bowel sounds active 4 MUSCULOSKELETAL: Extremities without clubbing, cyanosis, or edema. NEUROLOGICAL: Awake and alert. Oriented to person. Motor and sensory grossly within normal limits. Normal speech. A/P Problem List: (1) Dementia ICD Code: F03.90 Status: Acute (2) Azotemia ICD Code: R79.89 Status: Acute (3) Abnormal liver enzymes ICD Code: R74.8 Status: Acute (4) Thyroid mass of unclear etiology ICD Code: E07.89 Status: Acute Assessment and Plan Patient is a 76 year old female with primary medical history of dementia, DM, glaucoma who came in to [facility] brought in by her grandson secondary to hallucinations. As per review records, patient was worked up CT of the head, chest x-ray, chest CT with findings of thyroid mass, septemia, liver enzyme elevation, protein malnutrition. She was transferred to inpatient psychiatry unit for further evaluation of hallucinations. Consulted for continued medical management. 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 Follow- up results. Azotemia, acute - Unknown chronicity of patient's renal functions, records indicate patient with previous GFR 106 - Patient was given IV fluids - Abdominal ultrasound showed echogenic focus in the left kidney could be nonobstructing calculus versus cortical calcification measuring 3 mL - Improving BUN, creatinine 0.66, EGFR 105 Abnormal liver enzymes - Unknown etiology, patient does have thyroid mass, they could be possible underlying malignancy - Abdominal ultrasound showed slightly nodular liver without focal lesion or ductal dilatation could be related to early morphologic changes of cirrhosis - Trend LFTs Large inhomogeneous lobulated left thyroid mass - This is a CT scan finding from chest CT, it does have mass effect on the trachea - TSH 0.83 - total T3, free T4, both WNL - Consult medical oncology. Follow-up recommendations. Appreciate assistance. History of diabetes - Patient states that she was on medication prior but was discontinued. - Hemoglobin A1c 5.4 - Follow-up in 6 months with PCP Glaucoma - Continue eyedrops latanoprost DVT prop early ambulation Discussed with patient, nursing, Rhea Apple [facility] Jun 16, 2017 11:13
--- NOTE | 2017-06-16 11:19 | HHI.PYPN ---
Subjective Remarks Patient is a 76-year-old woman domiciled with son, , currently on SSI, with past psychiatric history of neurocognitive disorder by history, no previous psychiatric hospitalizations no previous suicide attempts, currently on 2 mg by mouth at night past medical history of diabetes, glaucoma, partial blindness, was brought in by grandson due to visual hallucinations. As per chart, patient was seen in the emergency room a couple of days ago with workup including imaging which found thyroid mass, acidemia, elevated LFTs, protein malnutrition. Patient was discharged home and returned again due to continue visual hallucinations and was admitted to the inpatient unit for further observation and management. On June 14, 2017 patient had endorsed continue visual hallucinations including children playing, several adults that are good and bad, that have been very distressing to her. She states that these are people that she does not recognize and also denies auditory hallucinations. Patient denied suicidal or homicidal ideation at the time. As per follow up note yesterday, patient had endorsed people coming in and out of her room and nursing had reported noticing the patient talking to these people, upset and at times screaming. Patient was continued on Risperdal 1 mg by mouth twice a day. Medicine consult was placed and as per recommendations hematology oncology consult was requested; consult appreciated. Final assessment and recommendations by hematology oncology pending. As per nursing today, patient was noted to have been screaming earlier this morning and visibly upset. Patient was seen by lead technical writer along with social media specialist , patient was able to be redirected and was able to calm down and engage in interview. Patient is alert and oriented to person only was not able to recognize where she was or the date. Patient states that she was upset this morning because there were "men in my room". She states that do not speak to her but that she can see them. She states that this is the first time this has happened despite previous reports of her having endorsed these visual hallucinations months prior. She states that it was her birthday yesterday and that she was happy to have been visited by her friend Monique who works "upstairs ". She states that she was visited by her crack son Terry and had a pleasant visit. Patient denies any depressive symptoms at this time reports sleeping well eating well, energy good, mood being "all right". She denies any auditory hallucinations but continues to report visual hallucinations as reported above. Patient denies any manic or any psychotic symptoms this time. Currently she reports feeling all right but requests to be discharged home. Patient had no attention deficit, a fluctuation of consciousness, no gross cognitive impairment. Review of Systems Eyes: COMPLAINS OF: Vision loss Other No somatic complaints Objective Alert: Yes [place]: Person Mood: Other ("alright") Affect: Other (constricted, but at one moment slightly tearful when reporting content of visual hallucinations) Memory Intact: Immediate, Remote Hallucinations: Visual Delusions: No Delusion Type: Other (no delusions) Suicidal: Ideation (no suicidal ideations) Homicidal: Ideation (no homicidal ideations) Insight/Judgment Insight limited, judgment fair, impulse control fair Labs Test 06/15/17 10:22 Sodium Level 139 MEQ/L Potassium Level 4.0 MEQ/L Chloride Level 103 MEQ/L Carbon Dioxide Level 29.0 MEQ/L Anion Gap 7 MEQ/L Blood Urea Nitrogen 19 MG/DL Creatinine 0.66 MG/DL Estimat Glomerular Filtration 105 ML/MIN Rate Random Glucose 83 MG/DL Hemoglobin A1c 5.4 % Calcium Level 8.7 MG/DL Triglycerides Level 77 MG/DL Cholesterol Level 207 MG/DL LDL Cholesterol 141 MG/DL HDL Cholesterol 51.1 MG/DL Cholesterol/HDL Ratio 4.05 RATIO Vitals/IOs Vital Signs Date Time Temp Pulse Resp B/P Pulse Ox O2 Delivery O2 Flow Rate FiO2 06/16/17 05:20 99.2 89 17 209/100 95 Intake and Output 06/15/17 06/15/17 06/15/17 07:59 15:59 23:59 Intake Total 720 ml 600 ml Balance 720 ml 600 ml Assessment & Plan Problem List: (1) Rakesh Bonnet syndrome Assessment & Plan: Patient is a 77-year-old woman with a working diagnoses of Rakesh-Bonnet syndrome who continues to have visual hallucinations for the past couple of months, with varied descriptions including children playing people in her room, different people in her room and today men in her room. She reports that C Jono hallucinations are very distressing which have been visibly upset this morning due to these hallucinations. She denies any auditory hallucinations. She has limited insight that these are hallucinations today. She denies any depressive manic anxious or psychotic symptoms at this time. She states that she has been sleeping well, eating "all right", fair energy and mood being "all right". Patient denies suicidal or homicidal ideations. Patient currently being followed by hematology oncology for thyroid mass found on imaging. Etiology of these visual hallucinations may be due a medical cause which must be ruled out. It is less likely that is a primary psychiatric cause due to absence of other psychiatric symptoms but continue to require management of these hallucinations as they are very distressing to the patient. Risperidone will be increased to 1 mg a.m. and 2 mg at bedtime for psychotic symptom (perceptual disturbances). Patient had elevated blood pressure this morning was given Catapres at 6 AM blood pressure was retaken and noted in chart; medical management as per medical team. Patient to continue on fall precautions. Patient will be continued to be followed by primary psychiatry team. ICD Code: H53.16 Assessment & Plan Estimated LOS: days Justification for Cont. Inpt. The patient continues to have active psychotic symptom, continues to require inpatient level of care for further psychiatric stabilization and medical management of current medical problems. Discharge Planning To be determined Request HC Surrog/Guard Advoc?: Jori Alonso MD Jun 16, 2017 11:19
[2017-06-16] MEDS: LORazepam 2 MG/ML VIAL - age > 65 yrs IM PRN (15:26)
--- NOTE | 2017-06-16 22:21 | MG ---
cc: CHAPARRO HAILE MD Lab No: Date: 06/16/2017 Age: Sex: F Race: ELECTROENCEPHALOGRAM RECORD NUMBER [id number] DATE OF 1940 HISTORY A 77-year-old with a history of dementia. DESCRIPTION 6-8 Hz activity, 10-30 microvolts, followed by generalized slowing, transition to drowsy stage I and stage II sleep with appearance of K complex and spindles. Good EEG variability, reactivity. Rhythmic theta bursts left temporal region epoch 133. Bursts of bitemporal slowing epoch 142. Reduced driving with photic stimulation. Single EKG showing sinus rhythm. INTERPRETATION Normal awake, asleep EEG. Clinical correlation. Chaparro Haile MD MG/KK /9:04 PM /10:08 PM
[2017-06-16] MEDS: ACETAMINOPHEN 325 MG TAB PO PRN (22:48)
[2017-06-16] MEDS: LATANOPROST 0.005% OPHT SOLN 2.5 ML BTL EACH EYE SCH (22:48)
[2017-06-17 06:27] VITALS: BP 157/76; PULSE 73; RESP 18; TEMP 97.8; O2SAT 96
[2017-06-17 08:46] LABS: ANION GAP 10 MEQ/L (5-15); AST (GOT) 41 U/L (15-37); BICARBONATE 27.4 MEQ/L (21.0-32.0); BLOOD UREA NITROGEN 21 MG/DL (7-18); CHLORIDE 100 MEQ/L (98-107); GLOMERULAR FILTRATION RATE 111 ML/MIN (>89); POTASSIUM 3.7 MEQ/L (3.5-5.1); SODIUM (NA) 137 MEQ/L (136-145)
[2017-06-17 08:48] LABS: ALKALINE PHOSPHATASE 246 U/L (45-117); ALT (GPT) 46 U/L (10-53); TOTAL BILIRUBIN ADULT 0.4 MG/DL (0.2-1.0)
[2017-06-17 08:50] LABS: HEMATOCRIT 51.1 % (35.0-46.0); MEAN CELL VOLUME 87.5 FL (80.0-100.0); MEAN CORPUSCULAR HEMOGLOBIN 28.8 PG (27.0-34.0); PLATELET COUNT 156 TH/MM3 (150-450); RED BLOOD COUNT 5.84 MIL/MM3 (4.00-5.30); RED CELL DISTRIBUTION WIDTH 17.4 % (11.6-17.2); WHITE BLOOD COUNT 3.9 TH/MM3 (4.0-11.0)
[2017-06-17 08:51] LABS: REVIEW FLAG FINAL
--- NOTE | 2017-06-17 09:04 | RADRPT ---
EXAM DATE/TIME: 06/17/2017 07:58 [facility] COMPARISON: No previous studies available for comparison. INDICATIONS : Left hip pain after fall. RADIATION DOSE: 12.95 CTDIvol (mGy) MEDICAL HISTORY : Dementia. Cardiovascular disease Diabetes mellitus type 2. SURGICAL HISTORY : Hysterectomy. ENCOUNTER: Initial ACUITY: 1 day PAIN SCALE: 8/10 LOCATION: Left pelvis TECHNIQUE: Volumetric scanning of the hip was performed. Using automated exposure control and adjustment of the mA and/or kV according to patient size, radiation dose was kept as low as reasonably achievable to o btain optimal diagnostic quality images. DICOM format image data is available electronically for rev iew and comparison. FINDINGS: BONES: There are bilateral hip arthroplasties in place with plate and screw fixation and cerclage wires in t he proximal left femur. There is associated heterotopic bone formation along the femoral neck region and posterior acetabulum. There is a small minimally displaced fracture along the anteromedial acetab ular roof. Remaining osseous structures appear intact. The the arthroplasty components are anatomical ly aligned. No JOINTS: Prominent bilateral, left greater than right, SI joint degenerative change with osteophytes and assoc iated sclerosis most prominently in the left sacrum. SOFT TISSUES: Muscles, tendons and neurovascular structures are grossly unremarkable. No evidence of mass, organize d fluid collection, or foreign body. CONCLUSION: 1. Small minimally displaced anteromedial acetabular roof fracture, as above. Rosalio Wray MD on June 17, 2017 at 8:38 Board Certified Radiologist. This report was verified electronically.
[2017-06-17] MEDS: ACETAMINOPHEN 325 MG TAB PO PRN ×2 (09:12→21:07)
[2017-06-17] MEDS: risperiDONE 1 MG TAB PO SCH ×2 (09:12→21:07)
--- NOTE | 2017-06-17 09:42 | RADRPT ---
EXAM DATE/TIME: 06/17/2017 08:16 [facility] COMPARISON: CT BRAIN W/O CONTRAST, June 09, 2017, 18:47. INDICATIONS : Psychosis. Visual hallucinations. MEDICAL HISTORY : Hypertension. SURGICAL HISTORY : Bilateral hip replacements. ENCOUNTER: Subsequent ACUITY: 3 day PAIN SCORE: 0/10 LOCATION: head. TECHNIQUE: Multiplanar, multisequence MRI of the brain was performed without contrast. FINDINGS: CEREBRUM: Mild, symmetric cortical atrophy. No evidence of midline shift, mass lesion, hemorrhage or acute inf arction. No extraaxial fluid collections are seen. The pituitary gland and suprasellar cistern are normal in configuration. WHITE MATTER: Periventricular and scattered deep white matter tract areas of increased T2 flair signal intensity ch aracteristic of mild small vessel ischemic demyelination. POSTERIOR FOSSA: The cerebellum and brainstem are intact. The 4th ventricle is midline. The cerebellopontine angle is unremarkable. The cerebellar tonsils are normal in position. DIFFUSION IMAGING: No focal areas of restricted diffusion are seen. No evidence of acute infarction. EXTRACRANIAL: The visualized portions of the orbits are unremarkable. Bronchial thickening posteriorly in the left maxillary antra. CONCLUSION: 1. Mild chronic changes with symmetric cortical atrophy and predominantly periventricular small vesse l ischemic demyelination. 2. No acute intracranial process. 3. Chronic sinusitis in the left maxillary antra. Chucky Bills MD on June 17, 2017 at 8:59 Board Certified Radiologist. This report was verified electronically.
[2017-06-17 10:00] VITALS: BP 163/76; PULSE 66; RESP 16; TEMP 97.3; O2SAT 95
[2017-06-17 14:24] VITALS: BP 141/66; PULSE 91; RESP 18; TEMP 98.8; O2SAT 97
--- NOTE | 2017-06-17 15:11 | HHI.PYPN ---
Subjective Remarks Patient is a 76-year-old woman domiciled with son, , currently on SSI, with past psychiatric history of neurocognitive disorder by history, no previous psychiatric hospitalizations no previous suicide attempts, currently on 2 mg by mouth at night past medical history of diabetes, glaucoma, partial blindness, was brought in by grandson due to visual hallucinations. Patient was seen today for follow up with social contact worker/counselor; chart reviewed. Patient yesterday afternoon attempted to go to the restroom without the aid of the nurse and had reported having fallen on her left side. CT scan of the hip was ordered yesterday afternoon rule out possible fracture and one-to -one observation was placed. Patient was seen by typewriter mechanic after the fall and the patient reported some soreness to the left side of her hip but denied having hit her head or any other part of her body. As per nursing, patient had gone to have CT of the hip and brain MRI earlier this morning. It was reported also that patient slept well last night without any episodes of distress or reported visual hallucinations. Upon interview patient was found lying in hospital bed with 1:1 sitter at bedside. Patient reports that she has slept okay last night , continued to have some soreness of the left hip. She reports her mood as being "okay", good appetite, some decreased energy, but denied any depressive manic or other psychotic symptoms. Patient states that since yesterday she had no longer experienced these visual hallucinations. Patient requests to go home but was recommended for patient to continue ongoing treatment and evaluation which she reluctantly agreed. Currently patient states feeling okay, denies suicidal or homicidal ideations, denies auditory or visual hallucinations at time of interview. Lower extremity CT scan (left hip) - 06/17/2017: report reviewed which stated small minimally displaced anteromedial acetabular roof fracture. Brain MRI (06/17/2017): Report reviewed which stated mild chronic changes with symmetrical cortical atrophy and predominantly periventricular small vessel ischemic demyelination. EEG (06/16/2017): final report pending Language Instructor met with family members her 2 grandsons along with social contact worker/ counselor for family meeting. Family had concerns of where the patient would go after she left the hospital. They state that they were worried that she will be unable to care for herself at home alone. They would like to explore options of having patient placed in assisted living facility. One of the grandsons who lives here in [place] states that he works now in a fpc from [place] and makes it difficult for him to come to the hospital to visit his grandmother within visiting hours. He also mentions that it'll be very difficult for him to yell to care for his grandmother as he feels the patient needs a lot of assistance. Review of Systems ROS Limitations: Poor Historian Musculoskeletal: COMPLAINS OF: Joint pain (patient reports continued soreness in the left hip.) Other No other somatic complaints Objective Alert: Yes [place]: Person, Place Mood: Other ("alright") Affect: Other (constricted) Memory Intact: Immediate, Remote Hallucinations: Other (denied at this time) Delusions: No Delusion Type: Other (no delusions) Suicidal: Ideation (no suicidal ideations) Homicidal: Ideation (no homicidal ideations) Insight/Judgment Patient will limited insight, fair judgment, fair impulse control Remarks Patient appears stated age, found hospital bed in hospital gown, with one-to- one sitter at bedside, fair hygiene, fair grooming, calm and cooperative with interview, speech normal rate and prosody. No psychomotor agitation or retardation Labs Test 06/17/17 06:55 White Blood Count 3.9 TH/MM3 Red Blood Count 5.84 MIL/MM3 Hemoglobin 16.8 GM/DL Hematocrit 51.1 % Mean Corpuscular Volume 87.5 FL Mean Corpuscular Hemoglobin 28.8 PG Mean Corpuscular Hemoglobin 33.0 % Concent Red Cell Distribution Width 17.4 % Platelet Count 156 TH/MM3 Mean Platelet Volume 8.3 FL Sodium Level 137 MEQ/L Potassium Level 3.7 MEQ/L Chloride Level 100 MEQ/L Carbon Dioxide Level 27.4 MEQ/L Anion Gap 10 MEQ/L Blood Urea Nitrogen 21 MG/DL Creatinine 0.63 MG/DL Estimat Glomerular Filtration 111 ML/MIN Rate Random Glucose 87 MG/DL Calcium Level 9.2 MG/DL Total Bilirubin 0.4 MG/DL Aspartate Amino Transf 41 U/L (AST/SGOT) Alanine Aminotransferase 46 U/L (ALT/SGPT) Alkaline Phosphatase 246 U/L Total Protein 7.4 GM/DL Albumin 2.7 GM/DL Vitals/IOs Vital Signs Date Time Temp Pulse Resp B/P Pulse Ox O2 Delivery O2 Flow Rate FiO2 06/17/17 14:24 98.8 91 18 141/66 97 Intake and Output 06/16/17 06/16/17 06/16/17 07:59 15:59 23:59 Intake Total 1200 ml Balance 1200 ml Assessment & Plan Problem List: (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 Patient's denied any visual hallucinations since yesterday. She denies any depressive manic or any other psychotic symptoms at this time. Patient will remain on current dose of risperidone at this time. Due to recent fall and recent report of CT of the hip orthopedic consult was placed and waiting for recommendations. EEG done on 06/16/2017: report pending. Hematology oncology will continue follow up for thyroid mass imaging; awaiting recommendations. Primary primary medical team will continue to follow patient. Patient to continue on one-to-one observation for safety. Continue fall precautions. Discharge planning in progress. Justification for Cont. Inpt. Patient with recent visual hallucinations which interfered with her daily living , very distressful. Patient continued with medical workup to rule out medical causes. Due to patient's current visual limitations patient will require assistance which services are currently being explored to provide a safe discharge plan. Discharge Planning Currently in process. Request HC Surrog/Guard Advoc?: Jori Alonso MD Jun 17, 2017 15:11
--- NOTE | 2017-06-17 15:24 | HHI.PR ---
Subjective Remarks in bed. Says she has slightly blurry vision but not worsening. No fever or chills. Fell last night not able to elaborate much . Patient says she had left hip pain, pain is controlled by meds. No n/v/d/c. Able to eat. No motor or sensory deficit. Objective Vitals Vital Signs Date Time Temp Pulse Resp B/P Pulse Ox O2 Delivery O2 Flow Rate FiO2 06/17/17 14:24 98.8 91 18 141/66 97 06/17/17 10:00 97.3 66 16 163/76 95 06/17/17 06:27 97.8 73 18 157/76 96 06/16/17 22:00 98.2 68 16 112/75 06/16/17 20:30 84 16 115/70 06/16/17 17:11 79 200/100 06/16/17 16:45 80 205/99 06/16/17 15:45 81 213/110 I/O 06/16/17 06/16/17 06/16/17 06/17/17 06/17/17 06/17/17 06:59 14:59 22:59 06:59 14:59 22:59 Intake Total 1200 ml 360 ml Balance 1200 ml 360 ml Intake Oral 1200 ml 360 ml # Voids 4 5 Result Diagram: 06/17/17 0655 06/17/17 0655 Imaging Last Impressions Brain MRI 06/17/17 0000 Signed Impressions: Service Date/Time: May 08:16 - CONCLUSION: 1. Mild chronic changes with symmetric cortical atrophy and predominantly periventricular small vessel ischemic demyelination. 2. No acute intracranial process. 3. Chronic sinusitis in the left maxillary antra. Chucky Bills MD Lower Extremity CT 06/16/17 0000 Signed Impressions: Service Date/Time: May 07:58 - CONCLUSION: 1. Small minimally displaced anteromedial acetabular roof fracture, as above. Rosalio Wray MD Objective Remarks GENERAL: This is a well-nourished, well-developed patient, in no apparent distress. NECK: Trachea midline. Right neck mass palpable, left also has slightly palpable mass CARDIOVASCULAR: Regular rate and rhythm without murmurs, gallops, or rubs. RESPIRATORY: Diminished bases. No wheezes, rales, or rhonchi. GASTROINTESTINAL: Abdomen soft, non-tender, nondistended. Bowel sounds active 4 MUSCULOSKELETAL: Extremities without clubbing, cyanosis, or edema. NEUROLOGICAL: Awake and alert. Oriented to person. Motor and sensory grossly within normal limits. Normal speech. A/P Problem List: (1) Dementia ICD Code: F03.90 Status: Acute (2) Azotemia ICD Code: R79.89 Status: Acute (3) Abnormal liver enzymes ICD Code: R74.8 Status: Acute (4) Thyroid mass of unclear etiology ICD Code: E07.89 Status: Acute Assessment and Plan Patient is a 76 year old female with primary medical history of dementia, DM, glaucoma who came in to [facility] brought in by her grandson secondary to hallucinations. As per review records, patient was worked up CT of the head, chest x-ray, chest CT with findings of thyroid mass, septemia, liver enzyme elevation, protein malnutrition. She was transferred to inpatient psychiatry unit for further evaluation of hallucinations. Consulted for continued medical management. S/P Fall 06/16 at night. Repeat MRI brain at baseline no acute findings Minimally displaced anteromedial small acetabular roof fracture. left hip pain after fall. patient with left hip fracture consult ortho appreciate recommendations. 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 Follow- up results. Azotemia, acute - Unknown chronicity of patient's renal functions, records indicate patient with previous GFR 106 - Patient was given IV fluids - Abdominal ultrasound showed echogenic focus in the left kidney could be nonobstructing calculus versus cortical calcification measuring 3 mL - Improving BUN, creatinine 0.66, EGFR 105 Abnormal liver enzymes - Unknown etiology, patient does have thyroid mass, they could be possible underlying malignancy - Abdominal ultrasound showed slightly nodular liver without focal lesion or ductal dilatation could be related to early morphologic changes of cirrhosis - Trend LFTs Large inhomogeneous lobulated left thyroid mass - This is a CT scan finding from chest CT, it does have mass effect on the trachea - TSH 0.83 - total T3, free T4, both WNL - Consult medical oncology. Follow-up recommendations. Appreciate assistance. History of diabetes - Patient states that she was on medication prior but was discontinued. - Hemoglobin A1c 5.4 - Follow-up in 6 months with PCP Glaucoma - Continue eyedrops latanoprost DVT prop early ambulation Discussed with patient, nurse, psychiatry Avelina Phillip MD Jun 17, 2017 15:24
--- NOTE | 2017-06-17 16:41 | PD.CONS ---
cc: Marquis Esteves Jr., MD HPI Service Orthopedic Surgeons Consult Requested By Primary Care Physician No Primary Care Physician Admission Diagnosis DEMENTIA Diagnoses: (1) Dementia (2) Azotemia (3) Abnormal liver enzymes (4) Thyroid mass of unclear etiology Chief Complaint: left hip pain History of Present Illness 76-year-old woman who resides in [facility] with family members presented was brought to the emergency department because of possible hallucinations. She has past medical history of dementia, glaucoma and diabetes. She complains of some left hip pain with difficulty weightbearing however there is no history of reported recent trauma or fall. Patient is a poor historian. C/o left hip pain and inability bear weight. No xrays available. CT performed. Currently patient's pain is dull, 4 out of 10, exacerbated by any range of motion, relieved at rest and with IV pain medicine, pain is sharp nonradiating, not associated with any paresthesia and numbness to the right lower extremity. PAST MEDICAL HISTORY As stated MEDICATIONS Active medicines are 1. Clonidine. 2. Ophthalmic drops 3. Dorzolamide 4. Latanoprost 5. 6. Risperidone. ALLERGIES PENICILLIN SOCIAL HISTORY She lives with her son. Review of Systems Unobtainable Past Family Social History Allergies: Coded Allergies: Penicillin (Verified Allergy, Severe, 06/12/17) Active Ordered Medications Current Medications Medications (Trade) Dose Ordered Sig/Bindu Route Start Time Stop Time Status Last Admin (Ativan) 0.5 mg Q12H PRN PO 06/14/17 19:30 06/16/17 05:02 (Ativan Inj) 0.5 mg Q12H PRN IM 06/14/17 19:30 06/16/17 15:26 (Tylenol) 650 mg Q4H PRN PO 06/14/17 19:30 06/17/17 09:12 (Milk Of Magnesia Liq) 30 ml DAILY PRN PO 06/14/17 19:30 (Mag-Al Plus Susp Liq) 30 ml Q6H PRN PO 06/14/17 19:30 (Catapres) 0.1 mg Q6H PRN PO 06/15/17 14:00 06/16/17 16:32 (Xalatan 0.005% Opth Soln) 1 drop HS EACH EYE 06/15/17 21:00 06/16/17 22:48 (risperDAL) 2 mg HS PO 06/16/17 21:00 06/16/17 22:47 (risperDAL) 1 mg DAILY PO 06/17/17 09:00 06/17/17 09:12 Reported Meds & Active Scripts Active Catapres (Clonidine) 0.1 Mg Tab 0.1 Mg PO Q6H PRN 30 Days Reported Risperidone 2 Mg Tab 2 Mg PO HS Dorzolamide-Timolol Opth Drops 22.3-6.8 Mg/Ml Soln 1 Drop EACH EYE BID Latanoprost Opth Drops (Latanoprost) 0.005% Drops 1 Drop EACH EYE HS Refrigerate until opened. Physical Exam Vital Signs Vital Signs Date Time Temp Pulse Resp B/P Pulse Ox O2 Delivery O2 Flow Rate FiO2 06/17/17 14:24 98.8 91 18 141/66 97 06/17/17 10:00 97.3 66 16 163/76 95 06/17/17 06:27 97.8 73 18 157/76 96 06/16/17 22:00 98.2 68 16 112/75 06/16/17 20:30 84 16 115/70 06/16/17 17:11 79 200/100 06/16/17 16:45 80 205/99 Physical Exam Mild dementia Head: NC/AT Neck: No pain with any range of motion and neck. Pulmonary: Normal respiratory effort. Bilateral upper extremity: No deformities. Grossly neurovascular intact. 2+ radial artery pulses. Good cap refill. RIGHT lower extremity: Neurovascularly intact, +EHL/FHL, + PT/DP pulses. Supple compartments. Negative Homans sign. LEFT lower extremity: Neurovascularly intact, +EHL/FHL, + PT/DP pulses. Supple compartments. Negative Homans sign. Good ROM, no pain, no instability. mild tender pubic tubercle anteriorly. nontender posterior SI area. Laboratory Laboratory Tests Test 06/17/17 06:55 White Blood Count 3.9 Red Blood Count 5.84 Hemoglobin 16.8 Hematocrit 51.1 Mean Corpuscular Volume 87.5 Mean Corpuscular Hemoglobin 28.8 Mean Corpuscular Hemoglobin 33.0 Concent Red Cell Distribution Width 17.4 Platelet Count 156 Mean Platelet Volume 8.3 Sodium Level 137 Potassium Level 3.7 Chloride Level 100 Carbon Dioxide Level 27.4 Anion Gap 10 Blood Urea Nitrogen 21 Creatinine 0.63 Estimat Glomerular Filtration 111 Rate Random Glucose 87 Calcium Level 9.2 Total Bilirubin 0.4 Aspartate Amino Transf 41 (AST/SGOT) Alanine Aminotransferase 46 (ALT/SGPT) Alkaline Phosphatase 246 Total Protein 7.4 Albumin 2.7 Result Diagram: 06/17/17 0655 06/17/17 0655 Imaging Last 72 hours Impressions Brain MRI 06/17/17 0000 Signed Impressions: Service Date/Time: May 08:16 - CONCLUSION: 1. Mild chronic changes with symmetric cortical atrophy and predominantly periventricular small vessel ischemic demyelination. 2. No acute intracranial process. 3. Chronic sinusitis in the left maxillary antra. Chucky Bills MD Lower Extremity CT 06/16/17 0000 Signed Impressions: Service Date/Time: May 07:58 - CONCLUSION: 1. Small minimally displaced anteromedial acetabular roof fracture, as above. Rosalio Wray MD Assessment & Plan Assessment and Plan 77-year-old female with history of a hallucination and dementia presented with left hip pain after a questionable possible fall. She is neurovascular intact distally. CT scan revealed nondisplaced fracture of the medial acetabulum. Acetabular cup from previous hip arthroplasty is stable and intact. I recommend nonoperative treatment with nonweightbearing for 4 weeks on left lower extremity. Okay for physical therapy to start range of motion the left hip. -NWB LLE. ROM as gayle f/u 2 wks outpatient Marquis Esteves Jr., MD Jun 17, 2017 16:40
[2017-06-17 17:47] VITALS: BP 124/61; PULSE 87; RESP 18; TEMP 97.2; O2SAT 96
[2017-06-17] MEDS ORDERED: DEXTROSE 50% IN WATER 50 ML VIAL(D50) IV PRN (20:45)
[2017-06-17] MEDS ORDERED: GLUCAGON 1 MG/ML VIAL OTHER PRN (20:45)
[2017-06-17] MEDS: LATANOPROST 0.005% OPHT SOLN 2.5 ML BTL EACH EYE SCH (21:00)
[2017-06-17] MEDS: DORZOLAMIDE/TIMOLOL OPTH SOLN 10 ML BTL EACH EYE SCH (21:30)
[2017-06-18 06:46] VITALS: BP 120/60; PULSE 93; RESP 18; TEMP 97.8; O2SAT 96
[2017-06-18] MEDS: risperiDONE 1 MG TAB PO SCH ×2 (09:16→20:08)
[2017-06-18] MEDS: DORZOLAMIDE/TIMOLOL OPTH SOLN 10 ML BTL EACH EYE SCH ×2 (09:22→20:08)
[2017-06-18] MEDS: LATANOPROST 0.005% OPHT SOLN 2.5 ML BTL EACH EYE SCH ×2 (09:22→20:08)
--- NOTE | 2017-06-18 10:34 | HHI.PR ---
Subjective Remarks Follow-up visit visual hallucination, dementia, DM, glaucoma, status post fall - small minimally displace acetabular fracture. Patient seen and examined today. Reports pain is manageable and that she is doing well. States she continues to have blurring of vision. Discussed with patient to call for help and assistance when getting out of bed but should be able to sit up in the chair with physical therapy today. Patient continues to be on one-to-one for safety. Denies pain and discomfort. Denies SOB/ dyspnea. Denies chest pain, palpitations, headaches, dizziness. Denies fevers, chills, n/v/d. Denies dysuria. Objective Vitals Vital Signs Date Time Temp Pulse Resp B/P Pulse Ox O2 Delivery O2 Flow Rate FiO2 06/18/17 06:46 97.8 93 18 120/60 96 06/17/17 17:47 97.2 87 18 124/61 96 06/17/17 14:24 98.8 91 18 141/66 97 I/O 06/17/17 06/17/17 06/17/17 06/18/17 06/18/17 06/18/17 07:00 15:00 23:00 07:00 15:00 23:00 Intake Total 360 ml 480 ml Balance 360 ml 480 ml Intake Oral 360 ml 480 ml IV Total 0 ml # Voids 5 2 Result Diagram: 06/17/17 0655 06/17/17 0655 Imaging Last Impressions Brain MRI 06/17/17 0000 Signed Impressions: Service Date/Time: May 08:16 - CONCLUSION: 1. Mild chronic changes with symmetric cortical atrophy and predominantly periventricular small vessel ischemic demyelination. 2. No acute intracranial process. 3. Chronic sinusitis in the left maxillary antra. Chucky Bills MD Lower Extremity CT 06/16/17 0000 Signed Impressions: Service Date/Time: May 07:58 - CONCLUSION: 1. Small minimally displaced anteromedial acetabular roof fracture, as above. Rosalio Wray MD Objective Remarks GENERAL: This is a well-nourished, well-developed patient, in no apparent distress. SKIN: Warm and dry. HEAD: Atraumatic. Normocephalic. EYES: No scleral icterus. No injection or drainage. ENT: Nose without bleeding. Throat without erythema. Uvula midline. Airway patent. NECK: Trachea midline. Right neck mass palpable, left also has slightly palpable mass CARDIOVASCULAR: Regular rate and rhythm without murmurs, gallops, or rubs. RESPIRATORY: Diminished bases. No wheezes, rales, or rhonchi. GASTROINTESTINAL: Abdomen soft, non-tender, nondistended. Bowel sounds active 4 MUSCULOSKELETAL: Extremities without clubbing, cyanosis, or edema. Left hip tenderness to palpation NEUROLOGICAL: Awake and alert. Oriented to person. Motor and sensory grossly within normal limits. Normal speech. A/P Problem List: (1) Dementia ICD Code: F03.90 Status: Acute (2) Azotemia ICD Code: R79.89 Status: Acute (3) Abnormal liver enzymes ICD Code: R74.8 Status: Acute (4) Thyroid mass of unclear etiology ICD Code: E07.89 Status: Acute Assessment and Plan Patient is a 76 year old female with primary medical history of dementia, DM, glaucoma who came in to [facility] brought in by her grandson secondary to hallucinations. As per review records, patient was worked up CT of the head, chest x-ray, chest CT with findings of thyroid mass, septemia, liver enzyme elevation, protein malnutrition. She was transferred to inpatient psychiatry unit for further evaluation of hallucinations. Consulted for continued medical management. Status post fall - CT of the lower extremity showed small minimally displaced anterior medial acetabular roof fracture - Orthopedic consulted, recommended nonsurgical intervention nonweightbearing for 4 weeks on the left lower extremity. Physical therapy to start range of motion of the left hip. - Follow up in 2 weeks as an outpatient. - Fall precaution. Patient one-to-one observation for safety. Visual hallucination, dementia - Managed by psychiatry team - May have induced by dementia or Rakesh Bonnet syndrome secondary to blurring vision from glaucoma - Neurology has been consulted. - EEG showed normal awake, sleep EEG. - MRI showed mild chronic changes with symmetric cortical atrophy and predominantly periventricular small vessel ischemic demyelination. No acute intracranial process. Chronic sinusitis in the left maxillary antra - Reports minimal visual hallucinations Azotemia, acute - Unknown chronicity of patient's renal functions, records indicate patient with previous GFR 106 - Patient was given IV fluids - Abdominal ultrasound showed echogenic focus in the left kidney could be nonobstructing calculus versus cortical calcification measuring 3 mL - Improved BUN, creatinine 0.66, EGFR 105 Abnormal liver enzymes - Unknown etiology, patient does have thyroid mass, they could be possible underlying malignancy - Abdominal ultrasound showed slightly nodular liver without focal lesion or ductal dilatation could be related to early morphologic changes of cirrhosis - Trend LFTs Large inhomogeneous lobulated left thyroid mass - This is a CT scan finding from chest CT, it does have mass effect on the trachea - TSH 0.83 - total T3, free T4, both WNL - Consult medical oncology. Follow-up recommendations. Appreciate assistance. History of diabetes - Patient states that she was on medication prior but was discontinued. - Hemoglobin A1c 5.4 - Follow-up in 6 months with PCP Glaucoma - Continue eyedrops latanoprost DVT prop early ambulation Discussed with patient, nursing, DrRhea Mansfield Jun 18, 2017 10:34
--- NOTE | 2017-06-18 11:06 | HHI.PR ---
Objective Vitals Vital Signs Date Time Temp Pulse Resp B/P Pulse Ox O2 Delivery O2 Flow Rate FiO2 06/18/17 06:46 97.8 93 18 120/60 96 06/17/17 17:47 97.2 87 18 124/61 96 06/17/17 14:24 98.8 91 18 141/66 97 I/O 06/17/17 06/17/17 06/17/17 06/18/17 06/18/17 06/18/17 06:59 14:59 22:59 06:59 14:59 22:59 Intake Total 360 ml 480 ml Balance 360 ml 480 ml Intake Oral 360 ml 480 ml IV Total 0 ml # Voids 5 2 Result Diagram: 06/17/1765406/17/17654 Objective Remarks GENERAL: This is a well-nourished, well-developed patient, in no apparent distress. SKIN: Warm and dry. HEAD: Atraumatic. Normocephalic. EYES: No scleral icterus. No injection or drainage. ENT: Nose without bleeding. Throat without erythema. Uvula midline. Airway patent. NECK: Trachea midline. Right neck mass palpable, left also has slightly palpable mass CARDIOVASCULAR: Regular rate and rhythm without murmurs, gallops, or rubs. RESPIRATORY: Diminished bases. No wheezes, rales, or rhonchi. GASTROINTESTINAL: Abdomen soft, non-tender, nondistended. Bowel sounds active 4 MUSCULOSKELETAL: Extremities without clubbing, cyanosis, or edema. NEUROLOGICAL: Awake and alert. Oriented to person. Motor and sensory grossly within normal limits. Normal speech. A/P Problem List: (1) Dementia ICD Code: F03.90 Status: Acute (2) Azotemia ICD Code: R79.89 Status: Acute (3) Abnormal liver enzymes ICD Code: R74.8 Status: Acute (4) Thyroid mass of unclear etiology ICD Code: E07.89 Status: Acute Assessment and Plan Patient is a 76 year old female with primary medical history of dementia, DM, glaucoma who came in to [facility] brought in by her grandson secondary to hallucinations. As per review records, patient was worked up CT of the head, chest x-ray, chest CT with findings of thyroid mass, septemia, liver enzyme elevation, protein malnutrition. She was transferred to inpatient psychiatry unit for further evaluation of hallucinations. Consulted for continued medical management. 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 Follow- up results. Azotemia, acute - Unknown chronicity of patient's renal functions, records indicate patient with previous GFR 106 - Patient was given IV fluids - Abdominal ultrasound showed echogenic focus in the left kidney could be nonobstructing calculus versus cortical calcification measuring 3 mL - Improving BUN, creatinine 0.66, EGFR 105 Abnormal liver enzymes - Unknown etiology, patient does have thyroid mass, they could be possible underlying malignancy - Abdominal ultrasound showed slightly nodular liver without focal lesion or ductal dilatation could be related to early morphologic changes of cirrhosis - Trend LFTs Large inhomogeneous lobulated left thyroid mass - This is a CT scan finding from chest CT, it does have mass effect on the trachea - TSH 0.83 - total T3, free T4, both WNL - Consult medical oncology. Follow-up recommendations. Appreciate assistance. History of diabetes - Patient states that she was on medication prior but was discontinued. - Hemoglobin A1c 5.4 - Follow-up in 6 months with PCP Glaucoma - Continue eyedrops latanoprost DVT prop early ambulation Discussed with patient, nursing, Rhea Apple Jun 18, 2017 11:06
--- NOTE | 2017-06-18 14:39 | HHI.PYPN ---
Subjective Remarks Patient is a 76-year-old woman domiciled with son, , currently on SSI, with past psychiatric history of neurocognitive disorder by history, no previous psychiatric hospitalizations no previous suicide attempts, past medical history of diabetes, glaucoma, partial blindness, was brought in by grandson due to visual hallucinations. Patient was seen today for follow up; chart reviewed. As per nursing report, patient sated that last night patient had slept well, noted to be still confused at times, and continues to report occasional visual hallucinations. Patient had mentioned seeing several people around her when she was going to the restroom stating and all these people are going to watch me go to the restroom?. Patient was redirected as she was becoming visibly upset. Patient has become paranoid with these hallucinations when they occur. Upon interview, patient states that she has been feeling ok, slept well, good energy and appetite. When asked about the visual hallucinations she denied having any but when asked about the instance when she was yelling and screaming on a previous occasion she states not recalling that instance. Patient is an unreliable historian as she has poor insight into her current hallucinations. Patient denies any depressiv manic or other psychotic symptoms aside from those stated above. Currently reports feeling "ok", denies SI, HI, or auditory hallucinations at time of interview. Patient continues to request to go home. It is possible that the patient does not report visual hallucinations with intention of being discharged despite noted episodes by nursing staff. Orthopedic consult reviewed and appreciated. The recommendations are non- operative treatment with nonweightbearing for four weeks on the left lower extremity. Physical therapy to start range of motion to the left hip. PT consult reviewed and appreciated. The recommendations are physical therapy 3 -5times per week, Mon. - Fri. for length of stay for therapeutic eercises, bed mobility training, transfer training, gait and balance if appropriate and patient education. Review of Systems ROS Limitations: Poor Historian Other Patient continues to have some left hip pain. Objective Alert: Yes [place]: Person, Place Mood: Other ("ok") Affect: Other (constricted) Memory Intact: Immediate, Remote Hallucinations: Visual, Other (denied at this time) Delusions: Yes (paranoid delusions when experiencing the visual hallucinations) Delusion Type: Other (no delusions) Suicidal: Ideation (no suicidal ideations) Homicidal: Ideation (no homicidal ideations) Insight/Judgment Poor insight, fair impulse control and judgement Vitals/IOs Vital Signs Date Time Temp Pulse Resp B/P Pulse Ox O2 Delivery O2 Flow Rate FiO2 06/18/17 06:46 97.8 93 18 120/60 96 Intake and Output 06/17/17 06/17/17 06/18/17 08:00 16:00 00:00 Intake Total 360 ml 480 ml Balance 360 ml 480 ml Assessment & Plan Problem List: (1) Unspecified psychosis ICD Code: 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 Patient denies visual hallucinations and is unreliable historian as there have been witnessed events which she expresses seeing the people which are not there but denies these events when interviewed. Patient continues to have these episodes which have been very distressing to her which she requires constant redirection to avoid patient from becoming emotionally labile due to these hallucinations which a constant observer has been placed. Patient currently remains to have some psychosis and at this time would be a danger to self without appropriate services and treatment to maintain good care and safety. There have been concerns with family that the patient is not safe by herself and reacts to these hallucinations in an unsafe manner (e.g. going out the home) especially with visual impairment (partial blindness) and will not be able to function adequately and safely with continued perceptual disturbances which are distressing with poor insight that these visions are in fact hallucinations. Patient will continue to require inpatient level of care of stabilization. Justification for Cont. Inpt. Patient continues to have visual hallucinations and related paranoia which patient is at risk of self harm when reacting to these hallucinations in the context of the patient having partial blindness and poor insight into the psychosis. Patient will continue to require inpatient level of care for stabilization. Discharge Planning in progress Request HC Surrog/Guard Advoc?: Jori Alonso MD Jun 18, 2017 14:39
--- NOTE | 2017-06-18 17:02 | PD.CONS ---
[facility] Service Rehabilitation Medicine Consult Requested By Jori Hernandez MD Reason for Consult Comprehensive rehabilitation evaluation. Primary Care Physician No Primary Care Physician History of Present Illness Lora Paz is a 77 year old right hand dominant female admitted to [facility] 06/14/17 with hallucinations. Brain MRI showed mild chronic changes with symmetric cortical atrophy and small vessel ischemic demyelinating changes. She is currently receiving Risperdal. She was subsequently found to have right small minimally displaced anterior medial acetabular roof fracture. Review of Systems Constitutional: COMPLAINS OF: Fatigue Ears, nose, mouth, throat: DENIES: Throat pain Respiratory: DENIES: Shortness of breath Cardiovascular: DENIES: Chest pain Gastrointestinal: DENIES: Abdominal pain Genitourinary: COMPLAINS OF: Urinary frequency, Urgency Musculoskeletal: DENIES: Joint pain Integumentary: DENIES: Pruritus Hematologic/lymphatic: DENIES: Bruising Immunologic/allergic: DENIES: Urticaria Neurologic: COMPLAINS OF: Poor Balance, DENIES: Headache, Localized weakness, Paresthesias, Speech Problems Past Family Social History Allergies: Coded Allergies: Penicillin (Verified Allergy, Severe, 06/12/17) Past Medical History Dementia Glaucoma DM Thyroid mass Past Surgical History Bilateral TKA PIPPA Current Medications Current Medications Medications (Trade) Dose Ordered Sig/Bindu Route Start Time Stop Time Status Last Admin (Ativan) 0.5 mg Q12H PRN PO 06/14/17 19:30 06/16/17 05:02 (Ativan Inj) 0.5 mg Q12H PRN IM 06/14/17 19:30 06/16/17 15:26 (Tylenol) 650 mg Q4H PRN PO 06/14/17 19:30 06/17/17 21:07 (Milk Of Magnesia Liq) 30 ml DAILY PRN PO 06/14/17 19:30 (Mag-Al Plus Susp Liq) 30 ml Q6H PRN PO 06/14/17 19:30 (Catapres) 0.1 mg Q6H PRN PO 06/15/17 14:00 06/16/17 16:32 (risperDAL) 2 mg HS PO 06/16/17 21:00 06/17/17 21:07 (risperDAL) 1 mg DAILY PO 06/17/17 09:00 06/18/17 09:16 (Xalatan 0.005% Opth Soln) 1 drop BID EACH EYE 06/17/17 21:00 06/18/17 09:22 (D50w (Vial) Inj) 50 ml UNSCH PRN IV 06/17/17 20:45 (Glucagon Inj) 1 mg UNSCH PRN OTHER 06/17/17 20:45 (Cosopt 2-0.5% Opth Soln) 1 drop BID EACH EYE 06/17/17 21:30 06/18/17 09:22 Family History Unable to obtain Social History Prior to admission patient lived with grandson. She ambulated with a walker inside the home.. Exam I&O / VS 06/17/17 06/17/17 06/18/17 14:59 22:59 06:59 Intake Total 480 ml Balance 480 ml Intake Oral 480 ml IV Total 0 ml # Voids 2 Vital Signs Date Time Temp Pulse Resp B/P Pulse Ox O2 Delivery O2 Flow Rate FiO2 06/18/17 06:46 97.8 93 18 120/60 96 06/17/17 17:47 97.2 87 18 124/61 96 General: No acute distress, Other (Sitter at bedside reports no agitation) Respiratory: Lungs CTA, Non-labored respirations, BS equal Gastrointestinal: Positive Bowel Sounds, Non-Distended, Non-Tender Cardiovascular: Normal rate, Normal peripheral perfusion, Regular Rhythm Musculoskeletal: Swelling (None in the distal lower extremities) Psychiatric: Cooperative, Appropriate mood & affect Orientation: oriented to Self, oriented to Place, oriented to Situation, disoriented to Time Neurologic: EOM (tracks right and left; vision is impaired but able to discern some facial features), Facial Symmetry (symmetric), Speech (no dysarthria or word finding difficulties) Motor: Right Upper Extremity (4+/5), Left Upper Extremity (4+/5), Right Lower Extremity (4/5), Left Lower Extremity (testing limited due to pain but grossly 4 /5) Sensory Intact to light touch in upper and lower extremities DTRs: Normal Clonus: Negative Assessment and Plan Diagnosis: (1) Closed left acetabular fracture Encounter type: initial encounter Sublocation of acetabulum: dome Fracture alignment: nondisplaced Qualified Code: S32.485A - Closed nondisplaced dome fracture of left acetabulum, initial encounter Assessment 1. Fall with left acetabular fracture 2. Impaired mobility and ADLs 3. History of dementia Plan 1. Physical therapy to begin to mobilize nonweightbearing left lower extremity 2. Occupational therapy for ADLs 3. Case management to assist with ongoing rehabilitation needs at discharge. Patient will likely benefit from short course of inpatient rehabilitation prior to return home with family 4. Consider DVT prophylaxis while relatively immobile 5. Pain control appears to be adequate at this time. 6. Will follow-up hospitalized and at discharge. Thank you for this consult. Ana Ramirez MD Jun 18, 2017 17:02
[2017-06-18] MEDS: HEPARIN SODIUM - SQ 10,000 UNITS/ML VIAL SQ SCH (20:08)
[2017-06-19] MEDS: LORazepam 0.5 MG TAB age > 65 yrs PO PRN ×2 (02:14→07:59)
[2017-06-19 06:58] VITALS: BP 155/74; PULSE 77; RESP 15; TEMP 98.7; O2SAT 96
[2017-06-19] MEDS: DORZOLAMIDE/TIMOLOL OPTH SOLN 10 ML BTL EACH EYE SCH ×2 (09:00→21:00)
[2017-06-19] MEDS: HEPARIN SODIUM - SQ 10,000 UNITS/ML VIAL SQ SCH ×2 (09:00→21:42)
[2017-06-19] MEDS: LATANOPROST 0.005% OPHT SOLN 2.5 ML BTL EACH EYE SCH ×2 (09:00→21:00)
[2017-06-19] MEDS: risperiDONE 1 MG TAB PO SCH ×2 (09:16→21:43)
[2017-06-19 10:59] LABS: BASOPHIL % 0.9 % (0.0-2.0); EOSINOPHIL # 0.2 TH/MM3 (0-0.4); HEMATOCRIT 40.9 % (35.0-46.0); HEMO FLAGS DIFF FINAL; LYMPH % 23.6 % (9.0-44.0); LYMPHOCYTE # 1.1 TH/MM3 (1.0-4.8); MEAN CELL VOLUME 88.9 FL (80.0-100.0); MEAN CORPUSCULAR HEMOGLOBIN 29.1 PG (27.0-34.0); MEAN CORPUSCULAR HGB CONC 32.7 % (32.0-36.0); MONO % 10.2 % (0.0-8.0); NEUT % 61.3 % (16.0-70.0); PLATELET COUNT 247 TH/MM3 (150-450); RED BLOOD COUNT 4.61 MIL/MM3 (4.00-5.30); RED CELL DISTRIBUTION WIDTH 17.2 % (11.6-17.2); WHITE BLOOD COUNT 4.8 TH/MM3 (4.0-11.0)
[2017-06-19 11:16] LABS: ALKALINE PHOSPHATASE 270 U/L (45-117); TOTAL BILIRUBIN ADULT 0.2 MG/DL (0.2-1.0)
[2017-06-19 11:37] LABS: ALT (GPT) 60 U/L (10-53); ANION GAP 6 MEQ/L (5-15); AST (GOT) 52 U/L (15-37); BICARBONATE 29.6 MEQ/L (21.0-32.0); BLOOD UREA NITROGEN 27 MG/DL (7-18); CHLORIDE 102 MEQ/L (98-107); GLOMERULAR FILTRATION RATE 98 ML/MIN (>89); SODIUM (NA) 138 MEQ/L (136-145)
--- NOTE | 2017-06-19 14:17 | HHI.PYPN ---
Subjective Remarks Pt seen and discussed with staff. Pt has been labile of mood, vacillating between laughing and crying. She believes that she is in a school and has been talking about seeing children. Compliant with medications and tolerating without side effects. She was anxious and agitated this morning but calmed with ativan and is pleasant during interview. She denies pain or discomfort. No SI/ HI Objective Alert: Yes [place]: Person, Place Mood: Calm Affect: Restricted Memory Intact: Comment (impaired) Hallucinations: Visual, Other (denied at this time) Delusions: Yes (paranoid delusions kita visual hallucinations) Delusion Type: Paranoid Suicidal: Ideation (no suicidal ideations) Homicidal: Ideation (no homicidal ideations) Insight/Judgment poor Labs Test 06/19/17 09:42 White Blood Count 4.8 TH/MM3 Red Blood Count 4.61 MIL/MM3 Hemoglobin 13.4 GM/DL Hematocrit 40.9 % Mean Corpuscular Volume 88.9 FL Mean Corpuscular Hemoglobin 29.1 PG Mean Corpuscular Hemoglobin 32.7 % Concent Red Cell Distribution Width 17.2 % Platelet Count 247 TH/MM3 Mean Platelet Volume 8.2 FL Neutrophils (%) (Auto) 61.3 % Lymphocytes (%) (Auto) 23.6 % Monocytes (%) (Auto) 10.2 % Eosinophils (%) (Auto) 4.0 % Basophils (%) (Auto) 0.9 % Neutrophils # (Auto) 3.0 TH/MM3 Lymphocytes # (Auto) 1.1 TH/MM3 Monocytes # (Auto) 0.5 TH/MM3 Eosinophils # (Auto) 0.2 TH/MM3 Basophils # (Auto) 0.0 TH/MM3 CBC Comment DIFF FINAL Differential Comment Sodium Level 138 MEQ/L Potassium Level 4.0 MEQ/L Chloride Level 102 MEQ/L Carbon Dioxide Level 29.6 MEQ/L Anion Gap 6 MEQ/L Blood Urea Nitrogen 27 MG/DL Creatinine 0.70 MG/DL Estimat Glomerular Filtration 98 ML/MIN Rate Random Glucose 82 MG/DL Calcium Level 9.2 MG/DL Total Bilirubin 0.2 MG/DL Aspartate Amino Transf 52 U/L (AST/SGOT) Alanine Aminotransferase 60 U/L (ALT/SGPT) Alkaline Phosphatase 270 U/L Total Protein 8.3 GM/DL Albumin 2.9 GM/DL Vitals/IOs Vital Signs Date Time Temp Pulse Resp B/P Pulse Ox O2 Delivery O2 Flow Rate FiO2 06/19/17 06:58 98.7 77 15 155/74 96 Intake and Output 06/18/17 06/18/17 06/19/17 08:00 16:00 00:00 Intake Total 480 ml 1440 ml 360 ml Balance 480 ml 1440 ml 360 ml Assessment & Plan Problem List: (1) Unspecified 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 Estimated LOS: days Justification for Cont. Inpt. impairments in reality testing Request HC Surrog/Guard Advoc?: No Ebonie Bhandari MD Jun 19, 2017 14:17
[2017-06-19 18:00] VITALS: BP 194/88; PULSE 84; RESP 17; TEMP 98; O2SAT 96
[2017-06-19] MEDS: cloNIDine HCL 0.1 MG TAB PO PRN (19:26)
[2017-06-19 20:00] VITALS: BP 165/90
[2017-06-20 06:00] VITALS: BP 169/75; PULSE 70; RESP 16; TEMP 97.9; O2SAT 98
[2017-06-20] MEDS ORDERED: PILL SPLITTER OTHER PRN (08:15)
[2017-06-20] MEDS: risperiDONE 1 MG TAB PO SCH ×2 (08:44→20:57)
[2017-06-20] MEDS: HEPARIN SODIUM - SQ 10,000 UNITS/ML VIAL SQ SCH ×2 (08:44→20:57)
[2017-06-20] MEDS: DORZOLAMIDE/TIMOLOL OPTH SOLN 10 ML BTL EACH EYE SCH ×2 (08:45→21:00)
[2017-06-20] MEDS: LATANOPROST 0.005% OPHT SOLN 2.5 ML BTL EACH EYE SCH ×2 (08:46→21:00)
[2017-06-20] MEDS: amLODIPine BESYLATE 5 MG TAB PO SCH (09:18)
--- NOTE | 2017-06-20 17:26 | HHI.PYPN ---
Subjective Remarks Pt seen and discussed with staff. She remains 1:1 due to falls risk. She has been calm and cooperative with care today. Medication compliant. No VH today and denies AH. 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 Estimated LOS: days Justification for Cont. Inpt. impairments in self care and reality testing Request HC Surrog/Guard Advoc?: No Ebonie Bhandari MD Jun 20, 2017 17:26
--- NOTE | 2017-06-20 18:09 | HHI.PR ---
Subjective Remarks In the chair, sleepy. Says she ate and feels sleepy. Her BP was noted into a higher side, started norvasc. Patient denies having any headache. She says she doesn't have any more blurry vision. Feels much better today. No new motor or sensory deficit. No n/v/d/c. Eating well. Says pain in her left hip is controlled by meds. Objective Vitals Vital Signs Date Time Temp Pulse Resp B/P Pulse Ox O2 Delivery O2 Flow Rate FiO2 06/20/17 06:00 97.9 70 16 169/75 98 06/19/17 20:00 165/90 I/O 06/19/17 06/19/17 06/19/17 06/20/17 06/20/17 06/20/17 07:00 15:00 23:00 07:00 15:00 23:00 Intake Total 120 ml 1200 ml 480 ml Balance 120 ml 1200 ml 480 ml Intake Oral 120 ml 1200 ml 240 ml Oral Supplement 240 ml # Voids 1 2 Result Diagram: 06/19/17 0942 06/19/17 0942 Imaging Last Impressions Brain MRI 06/17/17 0000 Signed Impressions: Service Date/Time: May 08:16 - CONCLUSION: 1. Mild chronic changes with symmetric cortical atrophy and predominantly periventricular small vessel ischemic demyelination. 2. No acute intracranial process. 3. Chronic sinusitis in the left maxillary antra. Chucky Bills MD Lower Extremity CT 06/16/17 0000 Signed Impressions: Service Date/Time: May 07:58 - CONCLUSION: 1. Small minimally displaced anteromedial acetabular roof fracture, as above. Rosalio Wray MD Objective Remarks GENERAL: This is a well-nourished, well-developed patient, in no apparent distress. NECK: Trachea midline. Right neck mass palpable, left also has slightly palpable mass CARDIOVASCULAR: Regular rate and rhythm without murmurs, gallops, or rubs. RESPIRATORY: Diminished bases. No wheezes, rales, or rhonchi. GASTROINTESTINAL: Abdomen soft, non-tender, nondistended. Bowel sounds active 4 MUSCULOSKELETAL: Extremities without clubbing, cyanosis, or edema. NEUROLOGICAL: Awake and alert. Oriented to person. Motor and sensory grossly within normal limits. Normal speech. A/P Problem List: (1) Dementia ICD Code: F03.90 Status: Acute (2) Azotemia ICD Code: R79.89 Status: Acute (3) Abnormal liver enzymes ICD Code: R74.8 Status: Acute (4) Thyroid mass of unclear etiology ICD Code: E07.89 Status: Acute Assessment and Plan Patient is a 76 year old female with primary medical history of dementia, DM, glaucoma who came in to [facility] brought in by her grandson secondary to hallucinations. As per review records, patient was worked up CT of the head, chest x-ray, chest CT with findings of thyroid mass, septemia, liver enzyme elevation, protein malnutrition. She was transferred to inpatient psychiatry unit for further evaluation of hallucinations. Consulted for continued medical management. S/P Fall 06/16 at night. Repeat MRI brain at baseline no acute findings Minimally displaced anteromedial small acetabular roof fracture Left hip pain after fall. patient with left hip fracture consult ortho appreciate recommendations. Vitamin D deficiency Vit D level of 9.8 . Star Ergocalciferol 50.000 Q7 Days x 8 weeks. 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 Follow-up results. Azotemia, acute Unknown chronicity of patient's renal functions, records indicate patient with previous GFR 106 Patient was given IV fluids Abdominal ultrasound showed echogenic focus in the left kidney could be nonobstructing calculus versus cortical calcification measuring 3 mL Improving BUN, creatinine 0.66, EGFR 105 Abnormal liver enzymes Unknown etiology, patient does have thyroid mass, they could be possible underlying malignancy Abdominal ultrasound showed slightly nodular liver without focal lesion or ductal dilatation could be related to early morphologic changes of cirrhosis Trend LFTs Large inhomogeneous lobulated left thyroid mass This is a CT scan finding from chest CT, it does have mass effect on the trachea TSH 0.83 total T3, free T4, both WNL Consult medical oncology. Follow-up recommendations. Appreciate assistance. History of diabetes Patient states that she was on medication prior but was discontinued. Hemoglobin A1c 5.4 Follow-up in 6 months with PCP Glaucoma- Continue eyedrops latanoprost DVT prop early ambulation Discussed with patient, nurse Avelina Eaton MD Jun 20, 2017 18:09
[2017-06-20 18:35] VITALS: BP 140/63; PULSE 79; RESP 16; TEMP 98.1; O2SAT 98
[2017-06-21 07:08] VITALS: BP 111/65; PULSE 80; RESP 18; TEMP 97.8; O2SAT 97
[2017-06-21] MEDS: amLODIPine BESYLATE 5 MG TAB PO SCH (08:14)
[2017-06-21] MEDS: risperiDONE 1 MG TAB PO SCH ×2 (08:14→21:18)
[2017-06-21] MEDS: HEPARIN SODIUM - SQ 10,000 UNITS/ML VIAL SQ SCH ×2 (08:14→21:18)
[2017-06-21] MEDS: LATANOPROST 0.005% OPHT SOLN 2.5 ML BTL EACH EYE SCH ×2 (08:25→21:00)
[2017-06-21] MEDS: DORZOLAMIDE/TIMOLOL OPTH SOLN 10 ML BTL EACH EYE SCH ×2 (08:25→21:00)
--- NOTE | 2017-06-21 16:35 | PD.WCN.NOT ---
Wound Consult Description: Sacral deep tissue injury Communicated with: ARLENE Marie [facility] psych unit and Doctor Angelito for orders Recommendation: Please cleanse buttock, sacral and coccyx area with soap and water gently and pat dry. Apply skin prep BID and leave open to air. Please turn patient every 2 hours and PRN for comfort. Obtain air cushion for chair. Limit time in chair to 1 hour at a time. Additional Information: Patient seen on [address] [facility] unit for evaluation of possible open area to L ischial tuberosity. Patient stood with assistance of [facility] psych unit and freelance writer for wound assessment. L ischial area noted with dry intact skin. Sacral area noted with deep discoloration that is non blanchable over sacral area. Due to patient's skin tone deep, discoloration presents as dark brown intact skin, that measures 8cm x 5cm. Left sacral area open to air. ARLENE Marie to apply skin prep to sacral area . Patient needs to be turned every 2 hours and PRN for comfort and needs air cushion for chair. Margaret Wesley [facility] Jun 21, 2017 16:35
--- NOTE | 2017-06-21 18:16 | HHI.PYPN ---
Subjective Remarks Patient is a 76-year-old woman domiciled with son, , currently on SSI, with past psychiatric history of neurocognitive disorder by history, no previous psychiatric hospitalizations no previous suicide attempts, past medical history of diabetes, glaucoma, partial blindness, was brought in by grandson due to visual hallucinations. Patient was seen today for follow up; chart reviewed. As per chart patient on 06/19/17 had labile mood with her to be laughing and crying she believes she was in school and seeing children patient was also noted to be anxious and agitated was given Ativan with good effect. Patient was seen by medical team on 06/20/17 and noted to have elevated blood pressure and was started on Norvasc, pain control at this time for fracture. Oncology follow-up pending. As per nursing report, patient has been compliant with treatment, noted to be calm and pleasant, denied any VH last night. Patient was seen with counselor, chart reviewed. Patient was found in the day room sitting on chair found to be calm and cooperative with interview. Patient stated that the weekend for her went okay but also mentioned that she does not like the food on this unit. Patient over the weekend and was moved from the med/psych unit to the inpatient psychiatry unit. She denies any visual hallucinations but did admit to having visual hallucinations yesterday. She states that she saw child sticking their fingers in her food tray. Patient has partial insight in that these visions are hallucinations. Currently patient states feeling alright. Currently denies SI, HI, AVH, but continues to have occasional visual hallucinations which at times are distressing and noted this past weekend. Review of Systems ROS Limitations: Poor Historian Except as stated in HPI: all other systems reviewed are Neg Other No other somatic complaints Objective Alert: Yes [place]: Person, Place Mood: Calm Affect: Appropriate, Restricted Memory Intact: Comment (impaired) Hallucinations: Visual (continues to endorse) Delusions: Yes Delusion Type: Paranoid (mild) Suicidal: Ideation (no suicidal ideations) Homicidal: Ideation (no homicidal ideations) Insight/Judgment Poor insight, fair impulse control, limited judgment Remarks Patient appears stated age, fair hygiene and grooming, calm and cooperative in interview, fair eye contact. 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 Patient denies visual hallucinations during interview with video game script writer but continues to be reported by nursing staff. Patient continues to to be responding in a distressing manner when experiencing these visual hallucinations. Patient has poor insight into these hallucinations and needs reminding that these visions are simply hallucinations. Patient continues to require supervision upon discharge as patient has visual impairments as well as ongoing visual hallucinations which are distressing. Patient to continue physical therapy for increasing range of motion of the left hip. Patient will require rehabilitation upon discharge. Patient at this time will continue inpatient level of care for stabilization. Plan: Continue risperidone 1 mg a.m., 2 mg at bedtime. Continue one-to-one observation. Supportive psychotherapy provided. Discharge planning in progress. Justification for Cont. Inpt. Patient at risk for decompensation of lower level of care Discharge Planning In progress Request HC Surrog/Guard Advoc?: No Jori Hernandez MD Jun 21, 2017 18:16
[2017-06-21 18:31] VITALS: BP 127/57; PULSE 83; RESP 15; TEMP 97.4; O2SAT 98
[2017-06-22 05:38] VITALS: BP 140/63; PULSE 68; RESP 17; TEMP 98.4; O2SAT 97
[2017-06-22] MEDS: DORZOLAMIDE/TIMOLOL OPTH SOLN 10 ML BTL EACH EYE SCH ×2 (09:00→21:00)
[2017-06-22] MEDS: HEPARIN SODIUM - SQ 10,000 UNITS/ML VIAL SQ SCH ×2 (09:00→21:13)
[2017-06-22] MEDS: LATANOPROST 0.005% OPHT SOLN 2.5 ML BTL EACH EYE SCH ×2 (09:00→21:00)
[2017-06-22] MEDS: amLODIPine BESYLATE 5 MG TAB PO SCH (09:32)
[2017-06-22] MEDS: risperiDONE 1 MG TAB PO SCH ×2 (09:33→21:14)
[2017-06-22] MEDS: LORazepam 0.5 MG TAB age > 65 yrs PO PRN (16:30)
[2017-06-22] MEDS: ACETAMINOPHEN 325 MG TAB PO PRN (16:30)
[2017-06-22] MEDS ORDERED: MEGESTROL ACETATE SUSP 400 MG/10 ML CUP PO ONE (17:15)
--- NOTE | 2017-06-22 17:30 | HHI.PR ---
Subjective Remarks In the chair. Sitter next to her. Patient is sleepy. No n/v/d/c. Denies chest pain or sob. Says she is not having blurry vision. BP is better controlled today. patient with wound on her sacral region, says is not painful. No n/v/d/c. Objective Vitals Vital Signs Date Time Temp Pulse Resp B/P Pulse Ox O2 Delivery O2 Flow Rate FiO2 06/22/17 05:38 98.4 68 17 140/63 97 06/21/17 18:31 97.4 83 15 127/57 98 I/O 06/21/17 06/21/17 06/21/17 06/22/17 06/22/17 06/22/17 07:00 15:00 23:00 07:00 15:00 23:00 Intake Total 1800 ml 1080 ml Balance 1800 ml 1080 ml Intake Oral 1800 ml 1080 ml # Voids 1 5 1 Result Diagram: 06/19/17 0942 06/19/17 0942 Imaging Last Impressions Brain MRI 06/17/17 0000 Signed Impressions: Service Date/Time: May 08:16 - CONCLUSION: 1. Mild chronic changes with symmetric cortical atrophy and predominantly periventricular small vessel ischemic demyelination. 2. No acute intracranial process. 3. Chronic sinusitis in the left maxillary antra. Chucky Bills MD Lower Extremity CT 06/16/17 0000 Signed Impressions: Service Date/Time: May 07:58 - CONCLUSION: 1. Small minimally displaced anteromedial acetabular roof fracture, as above. Rosalio Wray MD Objective Remarks GENERAL: This is a well-nourished, well-developed patient, in no apparent distress. SKIN: Sacral deep tissue injury NECK: Trachea midline. Right neck mass palpable, left also has slightly palpable mass CARDIOVASCULAR: Regular rate and rhythm without murmurs, gallops, or rubs. RESPIRATORY: Diminished bases. No wheezes, rales, or rhonchi. GASTROINTESTINAL: Abdomen soft, non-tender, nondistended. Bowel sounds active 4 MUSCULOSKELETAL: Extremities without clubbing, cyanosis, or edema. NEUROLOGICAL: Awake and alert. Oriented to person. Motor and sensory grossly within normal limits. Normal speech. A/P Problem List: (1) Dementia ICD Code: F03.90 Status: Acute (2) Azotemia ICD Code: R79.89 Status: Acute (3) Abnormal liver enzymes ICD Code: R74.8 Status: Acute (4) Thyroid mass of unclear etiology ICD Code: E07.89 Status: Acute Assessment and Plan Patient is a 76 year old female with primary medical history of dementia, DM, glaucoma who came in to [facility] brought in by her grandson secondary to hallucinations. As per review records, patient was worked up CT of the head, chest x-ray, chest CT with findings of thyroid mass, septemia, liver enzyme elevation, protein malnutrition. She was transferred to inpatient psychiatry unit for further evaluation of hallucinations. Consulted for continued medical management. S/P Fall 06/16 at night. Repeat MRI brain at baseline no acute findings Minimally displaced anteromedial small acetabular roof fracture Left hip pain after fall. patient with left hip fracture consult ortho appreciate recommendations. Manage conservatively. Sacral deep tissue injury. Consult wound care. Discussed with Veronaen from wound care. Cleanse buttock, sacral and coccyx area with soap and water gently and pat dry. Apply skin prep BID and leave open to air. Turn patient every 2 hours and PRN for comfort. Obtain air cushion for chair. Limit time in chair to 1 hour at a time. Vitamin D deficiency Vit D level of 9.8 . Start Ergocalciferol 50.000 Q7 Days x 8 weeks. 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 Follow-up results. Azotemia, acute Unknown chronicity of patient's renal functions, records indicate patient with previous GFR 106 Patient was given IV fluids Abdominal ultrasound showed echogenic focus in the left kidney could be nonobstructing calculus versus cortical calcification measuring 3 mL Improving BUN, creatinine 0.66, EGFR 105 Abnormal liver enzymes Unknown etiology, patient does have thyroid mass, they could be possible underlying malignancy Abdominal ultrasound showed slightly nodular liver without focal lesion or ductal dilatation could be related to early morphologic changes of cirrhosis Trend LFTs Large inhomogeneous lobulated left thyroid mass This is a CT scan finding from chest CT, it does have mass effect on the trachea TSH 0.83 total T3, free T4, both WNL Consult medical oncology. Follow-up recommendations. Appreciate assistance. History of diabetes Patient states that she was on medication prior but was discontinued. Hemoglobin A1c 5.4 Follow-up in 6 months with PCP Glaucoma- Continue eyedrops latanoprost DVT prop early ambulation Discussed with patient, nurse Note: if patient doesn't have a SNF placement in 2-3 days, patient need to be transferred to med floor for special bed/mattress. Avelina Eaton MD Jun 22, 2017 17:30
--- NOTE | 2017-06-22 18:24 | HHI.PYPN ---
Subjective Remarks Patient is a 76-year-old woman domiciled with son, , currently on SSI, with past psychiatric history of neurocognitive disorder by history, no previous psychiatric hospitalizations no previous suicide attempts, past medical history of diabetes, glaucoma, partial blindness, was brought in by grandson due to visual hallucinations. Patient was seen today for follow up; chart reviewed. Patient was seen for follow-up, chart reviewed. As per nursing report patient had reported seeing children less evening , denied any auditory hallucinations and also noted to have decreased sleep last night. It is also reported that patient has a coccyx wound which wound care is assessing. Patient found in the common area sitting on a hospital chair to be calm and cooperative interview. Patient states that she had been feeling well, eating adequately, and having slept well last night. Although it was reported by nursing staff the patient had decreased sleep patient does not recall. Patient also denies any visual hallucinations and when asked about the episode less evening she stated that perhaps she did have them but was not noted to feel distressed about it. Patient states that she tries remind herself that when she sees this. The are simply hallucinations. Patient reports having had her grandson visit with her last evening which she enjoyed. Patient is aware of possible discharge to a rehabilitation facility with subsequent penitentiary placement thereafter. Currently patient reports feeling fine, denies SI, HI, AVH or delusions. Review of Systems Except as stated in HPI: all other systems reviewed are Neg Other No other somatic symptoms Objective Alert: Yes [place]: Person, Place Mood: Calm Affect: Appropriate Memory Intact: Comment (impaired) Hallucinations: Visual (continues to endorse, mostly seeing children) Delusions: No Delusion Type: Other (denies) Suicidal: Ideation (no suicidal ideations) Homicidal: Ideation (no homicidal ideations) Insight/Judgment Slightly improved insight, fair impulse control and judgment Vitals/IOs Vital Signs Date Time Temp Pulse Resp B/P Pulse Ox O2 Delivery O2 Flow Rate FiO2 06/22/17 05:38 98.4 68 17 140/63 97 Intake and Output 06/21/17 06/21/17 06/21/17 07:59 15:59 23:59 Intake Total 1800 ml Balance 1800 ml Assessment & Plan Problem List: (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 Patient currently appears to feel distressed pertaining to the visual hallucinations, has partial insight at times that they are hallucinations, appears to be better managing these episodes when they occur. Patient appears to be less paranoid with slightly improved insight into these hallucinations. Patient will continue to require physical therapy during her stay. Patient to continue current treatment, possible rehabilitation programs being explored along with penitentiary placement. Discharge planning and process Justification for Cont. Inpt. Patient at risk for decompensation without appropriate services put in place for safety discharge Discharge Planning And process Request HC Surrog/Guard Advoc?: No Jori Hernandez MD Jun 22, 2017 18:24
[2017-06-23 04:57] VITALS: BP 193/92; PULSE 92; RESP 17; TEMP 98.4; O2SAT 95
[2017-06-23] MEDS: cloNIDine HCL 0.1 MG TAB PO PRN (06:24)
[2017-06-23] MEDS: risperiDONE 1 MG TAB PO SCH ×2 (08:08→21:50)
[2017-06-23] MEDS: amLODIPine BESYLATE 5 MG TAB PO SCH (08:08)
[2017-06-23] MEDS: HEPARIN SODIUM - SQ 10,000 UNITS/ML VIAL SQ SCH ×2 (08:08→21:51)
[2017-06-23] MEDS: DORZOLAMIDE/TIMOLOL OPTH SOLN 10 ML BTL EACH EYE SCH ×2 (08:14→21:51)
[2017-06-23] MEDS: MEGESTROL ACETATE SUSP 400 MG/10 ML CUP PO SCH (08:14)
[2017-06-23] MEDS: LATANOPROST 0.005% OPHT SOLN 2.5 ML BTL EACH EYE SCH ×2 (09:00→21:00)
--- NOTE | 2017-06-23 17:20 | HHI.PR ---
Subjective Remarks Follow-up on patient with minimally displaced left hip fracture and sacral decubitus. Patient seen and examined today. Patient states she feels well. She reports some left knee pain following the fall she had a week ago. She denies any other complaints at this time. She denies any fever or chills. Denies any nausea, vomiting or abdominal pain. Denies any chest pain or shortness of breath. Objective Vitals Vital Signs Date Time Temp Pulse Resp B/P Pulse Ox O2 Delivery O2 Flow Rate FiO2 06/23/17 04:57 98.4 92 17 193/92 95 I/O 06/22/17 06/22/17 06/22/17 06/23/17 06/23/17 06/23/17 07:00 15:00 23:00 07:00 15:00 23:00 Intake Total 1080 ml 840 ml 480 ml Balance 1080 ml 840 ml 480 ml Intake Oral 1080 ml 840 ml 480 ml # Voids 1 1 1 Result Diagram: 06/19/17 0942 06/19/17 0942 Imaging Last Impressions Brain MRI 06/17/17 0000 Signed Impressions: Service Date/Time: May 08:16 - CONCLUSION: 1. Mild chronic changes with symmetric cortical atrophy and predominantly periventricular small vessel ischemic demyelination. 2. No acute intracranial process. 3. Chronic sinusitis in the left maxillary antra. Chucky Bills MD Lower Extremity CT 06/16/17 0000 Signed Impressions: Service Date/Time: May 07:58 - CONCLUSION: 1. Small minimally displaced anteromedial acetabular roof fracture, as above. Rosalio Wray MD Objective Remarks GENERAL: This is a well-nourished, well-developed patient, in no apparent distress. Awake and alert. Sitting up in the day room. SKIN: Sacral deep tissue injury NECK: Trachea midline. Right neck mass palpable, left also has slightly palpable mass CARDIOVASCULAR: Regular rate and rhythm without murmurs, gallops, or rubs. RESPIRATORY: Diminished bases. No wheezes, rales, or rhonchi. GASTROINTESTINAL: Abdomen soft, non-tender, nondistended. Bowel sounds active 4 MUSCULOSKELETAL: Extremities without clubbing, cyanosis, or edema. Left knee NTTP. No noticeable deformity. Good ROM. Crepitance noted with range of motion. NEUROLOGICAL: Awake and alert. Oriented to person. Motor and sensory grossly within normal limits. Normal speech. Medications and IVs Current Medications Medications (Trade) Dose Ordered Sig/Bindu Route Start Time Stop Time Status Last Admin (Ativan) 0.5 mg Q12H PRN PO 06/14/17 19:30 06/22/17 16:30 (Ativan Inj) 0.5 mg Q12H PRN IM 06/14/17 19:30 06/16/17 15:26 (Tylenol) 650 mg Q4H PRN PO 06/14/17 19:30 06/22/17 16:30 (Milk Of Magnesia Liq) 30 ml DAILY PRN PO 06/14/17 19:30 (Mag-Al Plus Susp Liq) 30 ml Q6H PRN PO 06/14/17 19:30 (Catapres) 0.1 mg Q6H PRN PO 06/15/17 14:00 06/23/17 06:24 (risperDAL) 2 mg HS PO 06/16/17 21:00 06/22/17 21:14 (risperDAL) 1 mg DAILY PO 06/17/17 09:00 06/23/17 08:08 (Xalatan 0.005% Opth Soln) 1 drop BID EACH EYE 06/17/17 21:00 06/23/17 09:00 (D50w (Vial) Inj) 50 ml UNSCH PRN IV 06/17/17 20:45 (Glucagon Inj) 1 mg UNSCH PRN OTHER 06/17/17 20:45 (Cosopt 2-0.5% Opth Soln) 1 drop BID EACH EYE 06/17/17 21:30 06/23/17 08:14 (Heparin Inj) 5,000 units Q12HR SQ 06/18/17 21:00 06/23/17 08:08 (Norvasc) 2.5 mg DAILY PO 06/20/17 09:00 06/23/17 08:08 (Pill Splitter) 1 ea UNSCH PRN OTHER 06/20/17 08:15 (Megace Liq) 400 mg DAILY PO 06/23/17 09:00 06/23/17 08:14 A/P Problem List: (1) Dementia ICD Code: F03.90 Status: Acute (2) Azotemia ICD Code: R79.89 Status: Acute (3) Abnormal liver enzymes ICD Code: R74.8 Status: Acute (4) Thyroid mass of unclear etiology ICD Code: E07.89 Status: Acute Assessment and Plan Patient is a 76 year old female with primary medical history of dementia, DM, glaucoma who came in to [facility] brought in by her grandson secondary to hallucinations. As per review records, patient was worked up CT of the head, chest x-ray, chest CT with findings of thyroid mass, septemia, liver enzyme elevation, protein malnutrition. She was transferred to inpatient psychiatry unit for further evaluation of hallucinations. Consulted for continued medical management. S/P Fall 06/16 at night. Repeat MRI brain at baseline no acute findings Minimally displaced anteromedial small acetabular roof fracture Left hip pain after fall. patient with left hip fracture consult ortho appreciate recommendations. Manage conservatively. Sacral deep tissue injury. Consult wound care. Discussed with Margaret from wound care. Cleanse buttock, sacral and coccyx area with soap and water gently and pat dry. Apply skin prep BID and leave open to air. Turn patient every 2 hours and PRN for comfort. Obtain air cushion for chair. Limit time in chair to 1 hour at a time. Vitamin D deficiency Vit D level of 9.8 . Continue Ergocalciferol 50.000 Q7 Days x 8 weeks. 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 Follow-up results. Azotemia, acute Unknown chronicity of patient's renal functions, records indicate patient with previous GFR 106 Patient was given IV fluids Abdominal ultrasound showed echogenic focus in the left kidney could be nonobstructing calculus versus cortical calcification measuring 3 mL Improving BUN, creatinine 0.66, EGFR 105 Abnormal liver enzymes Unknown etiology, patient does have thyroid mass, they could be possible underlying malignancy Abdominal ultrasound showed slightly nodular liver without focal lesion or ductal dilatation could be related to early morphologic changes of cirrhosis Trend LFTs - todays lab pending Large inhomogeneous lobulated left thyroid mass This is a CT scan finding from chest CT, it does have mass effect on the trachea TSH 0.83 total T3, free T4, both WNL Consult medical oncology. Follow-up recommendations. Appreciate assistance. History of diabetes Patient states that she was on medication prior but was discontinued. Blood sugars have been great. DC Accu-Cheks. Hemoglobin A1c 5.4 Follow-up in 6 months with PCP Glaucoma- Continue eyedrops latanoprost DVT prop early ambulation Discussed with patient, nurse Note: if patient doesn't have a SNF placement in 2-3 days, patient need to be transferred to med floor for special bed/mattress. Discussed with nursing staff, patient and Lisa Mcrae Jun 23, 2017 17:20
--- NOTE | 2017-06-23 17:58 | HHI.PYPN ---
Subjective Remarks Patient is a 76-year-old woman domiciled with son, , currently on SSI, with past psychiatric history of neurocognitive disorder by history, no previous psychiatric hospitalizations no previous suicide attempts, past medical history of diabetes, glaucoma, partial blindness, was brought in by grandson due to visual hallucinations. Patient was seen today for follow up; chart reviewed. Patient seen for follow up; chart reviewed. As per nursing patient yesterday had received medication after having had an episode of feeling distressed secondary to having visual hallucinations of children getting into her food. Patient found in the room having lunch, calm and cooperative in interview. Patient states that she had been feeling alright and stating that she had been feeling better. She states that she is eating in room sleeping regularly with no issues but reports continuing having visual hallucinations of children they dont come often but states that she last saw them yesterday. Patient has partial insight and that the children that she sees or simply hallucinations but requires reassurance. Patient continues to wait for placement in a rehabilitation facility which is being coordinated by team and patients grandson. Patient denies SI, HI, AVH or delusions. Review of Systems Except as stated in HPI: all other systems reviewed are Neg Objective Alert: Yes [place]: Person, Place Mood: Calm Affect: Appropriate Memory Intact: Comment (impaired) Hallucinations: Visual (continues to endorse, mostly seeing children) Delusions: No Delusion Type: Other (denies) Suicidal: Ideation (no suicidal ideations) Homicidal: Ideation (no homicidal ideations) Insight/Judgment partial insight, fair impulse control and judgement Vitals/IOs Vital Signs Date Time Temp Pulse Resp B/P Pulse Ox O2 Delivery O2 Flow Rate FiO2 06/23/17 04:57 98.4 92 17 193/92 95 Intake and Output 06/22/17 06/22/17 06/23/17 08:00 16:00 00:00 Intake Total 1080 ml 840 ml Balance 1080 ml 840 ml Assessment & Plan Problem List: (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 Patient will continue on current treatment regimen, continue physical therapy very hospital stay, patient to be discharged tomorrow to [facility] Justification for Cont. Inpt. Patient risk for further decompensation event lower level of care without transition to rehabilitation program and services. Discharge Planning In process Request HC Surrog/Guard Advoc?: Jori Alonso MD Jun 23, 2017 17:58
[2017-06-23 18:00] VITALS: BP 135/92; PULSE 70; RESP 18; TEMP 98.4; O2SAT 98
--- NOTE | 2017-06-23 19:14 | RADRPT ---
EXAM DATE/TIME: 06/23/2017 17:52 [facility] COMPARISON: No previous studies available for comparison. INDICATIONS : Left knee pain for 1 week post fall MEDICAL HISTORY : None. SURGICAL HISTORY : None. ENCOUNTER: Initial ACUITY: 1 week PAIN SCORE: 5/10 LOCATION: Left Knee FINDINGS: There is advanced osteoarthritic change in all 3 compartments of the knee with severe loss of height of the lateral compartment, moderately severe loss of height medial compartment, and prominent osteop hytes in all 3 compartments. No fracture seen. The suprapatellar soft tissues are normal in thickne ss. No radiopaque foreign bodies. Bony mineralization is normal. CONCLUSION: No evidence of recent bony injury. Advanced oquendo compartmental osteoarthritis. Arnie Ponce MD on June 23, 2017 at 19:11 Board Certified Radiologist. This report was verified electronically.
[2017-06-24 06:00] VITALS: BP 133/72; PULSE 70; RESP 17; TEMP 98.1; O2SAT 94
[2017-06-24] MEDS: amLODIPine BESYLATE 5 MG TAB PO SCH (08:58)
[2017-06-24] MEDS: LATANOPROST 0.005% OPHT SOLN 2.5 ML BTL EACH EYE SCH (08:58)
[2017-06-24] MEDS: MEGESTROL ACETATE SUSP 400 MG/10 ML CUP PO SCH (08:58)
[2017-06-24] MEDS: DORZOLAMIDE/TIMOLOL OPTH SOLN 10 ML BTL EACH EYE SCH (08:58)
[2017-06-24] MEDS: risperiDONE 1 MG TAB PO SCH (08:59)
[2017-06-24] MEDS: HEPARIN SODIUM - SQ 10,000 UNITS/ML VIAL SQ SCH (08:59)
[2017-06-24] MEDS ORDERED: AMLO5 PO (10:13)
[2017-06-24] MEDS ORDERED: DORZ2SOL7 EACH EYE (10:13)
[2017-06-24] MEDS ORDERED: LATA.005%O EACH EYE (10:13)
[2017-06-24] MEDS ORDERED: RISP1 PO ×2 (10:13)
[2017-06-24] MEDS ORDERED: MEGE40SU PO (10:13)
[2017-06-24 13:38] LABS: ANION GAP 6 MEQ/L (5-15); AST (GOT) 48 U/L (15-37); BICARBONATE 28.9 MEQ/L (21.0-32.0); BLOOD UREA NITROGEN 38 MG/DL (7-18); CHLORIDE 101 MEQ/L (98-107); GLOMERULAR FILTRATION RATE 60 ML/MIN (>89); POTASSIUM 3.8 MEQ/L (3.5-5.1); SODIUM (NA) 136 MEQ/L (136-145)
[2017-06-24 13:42] LABS: ALKALINE PHOSPHATASE 249 U/L (45-117); ALT (GPT) 67 U/L (10-53); TOTAL BILIRUBIN ADULT 0.3 MG/DL (0.2-1.0)
--- NOTE | 2017-06-24 18:00 | HHI.DS ---
Psychiatry Discharge Summary Inpatient Psychiatric care?: Yes Advance Directive: No Reason Not Provided: Due to Patient Condition Mental Health AdvanceDirective: No Health Care Proxy: No Admission Admission Date Jun 14, 2017 at 16:42 Admission Diagnosis: (1) Unspecified psychosis ICD Code: F29 Brief History 06/14/2017 The patient is a 76-year-old woman, domiciled with her son in [facility], , supported by [facility], with secondary history of dementia , no previous psychiatric hospitalizations, she is on Risperdal 2 mg at bedtime , no previous suicidal attempts, medical history of diabetes, partially blind, glaucoma who presented to hospital with her grandson because of hallucinations. Patient was evaluated in emergency department 3 days ago for similar symptoms. She had workup done with CT of the head, chest x-ray, chest CT with the abnormal findings to include thyroid mass, azotemia, liver enzyme elevation , protein malnutrition. Patient was recommended discharge and follow-up with her primary medical doctor. The patient did go home and patient brought back to emergency department yesterday because of continued hallucinations. Patient with mild worsening of her renal functions with decrease of GFR from 106>87. Patient was given IV fluid emergency department recommended observation for further recommendations and management. Patient was consulted to psychiatry to manage perceptual disturbances. On psychiatric evaluation today patient is calm , cooperative and very pleasant. Patient reports good mood, she denies depressive symptoms, patient is future oriented, she says that she is a happy person. However patient says that in the last 3-4 months she has been having frequent episodes of visual hallucinations that has been very distressing and frightening for her. Patient says that she understand that she has dementia, but she knows that these hallucinations are not right.. She indicates that she is seeing good and bad people. They have very colorful clothes. Some of them are adults and another kids, People are shooting other people and having sex with other people. She does not indicate that she knows the people that she is seen. She reports that these people are mute. She denies auditory hallucinations. She denies suicidal and homicidal ideation. Patient is partially oriented in time, she says that todays June 14, 2009. She says that she is at her home, but she knows that we are in [facility]. However , patient is very coherent and relevant and logical in her conversation. No paranoia, no delirium, no attention deficit, no agitation, no aggressive behavior, no disorganized behavior of thoughts are present. Patient denies the use of drugs and alcohol. 06/15/2017 on psychiatric evaluation today patient is states that she is happy, today's her birthday. She reports good mood, denies depressive symptoms, she denies anxiety at this moment. Patient says that she has had a long life and her life has been very happy. She doesn't have any pain or distress at this moment. She denies suicidal and homicidal ideation, but she continued to report episodes of perceptual disturbances which she sees people coming inside her room. Patient says that she does seem fairly anxious about them. However, as per nurses patient has been witnessed talking to people, upset, screaming to them. This morning she was found with some food around her mouth and she says that "several bad kids did that to me". Patient is fully oriented 3, no attention deficit, no fluctuation of consciousness, no gross cognitive impairment present. Tobacco Use In Past 30 Days: No Tobacco Past 30 Days Alcohol Use: Never Hospital Course Patient is a 76-year-old woman domiciled with son, , currently on SSI, with past psychiatric history of neurocognitive disorder by history, no previous psychiatric hospitalizations no previous suicide attempts, currently on 2 mg by mouth at night past medical history of diabetes, glaucoma, partial blindness, was brought in by grandson due to visual hallucinations. As per chart, patient was seen in the emergency room a couple of days ago with workup including imaging which found thyroid mass, acidemia, elevated LFTs, protein malnutrition. Patient was discharged home and returned again due to continue visual hallucinations and was admitted to the inpatient unit for further observation and management. On June 14, 2017 patient had endorsed continue visual hallucinations including children playing, several adults that are good and bad, that have been very distressing to her. She states that these are people that she does not recognize and also denies auditory hallucinations. Patient was started on Risperidone which was titrated up throughout admission as patient continued to have frequent episodes of visual hallucinations which were quite distressing to her; mostly of children around her and at times attempting to eat her food. Due to patients visual impairment attempted to reach the restroom and fell on her left hip which resulted in a minimally displaced anteromedial acetabular roof fracture. Orthopedics were consulted and recommended nonweight bearing for 4 weeks along with physical therapy with subsequent rehabilitation. Patient continued to receive physical therapy during her admission. Patient was followed by the medical team and managed to have her medically stable. Patient with continued treatment had less frequency of visual hallucinations, had partial insight that these visions were hallucinations but were no longer as distressing as they were initially. Patient at this time is psychiatrically stable for discharge with grandson to outpatient rehabilitation program. Patient to continue Risperidone 2mg PO AM/ 3mg PO at bedtime Patient to continue outpatient follow up for continuity of care. Patient to continue recommendations as per primary medical team Patient advised to return to ED in case of an emergency at anytime Patient and family agree with plan. Results Blood Pressure 133 / 72 Vital Signs Date Time Temp Pulse Resp B/P Pulse Ox O2 Delivery O2 Flow Rate FiO2 06/24/17 06:00 98.1 70 17 133/72 94 Laboratory Tests Test 06/24/17 12:36 Blood Urea Nitrogen 38 MG/DL (7-18) Creatinine 1.07 MG/DL (0.50-1.00) Estimat Glomerular Filtration 60 ML/MIN (>89) Rate Aspartate Amino Transf 48 U/L (15-37) (AST/SGOT) Alanine Aminotransferase 67 U/L (10-53) (ALT/SGPT) Alkaline Phosphatase 249 U/L (45-117) Total Protein 8.3 GM/DL (6.4-8.2) Albumin 3.0 GM/DL (3.4-5.0) Summary of Procedures None Imaging Last Impressions Knee X-Ray 06/23/17 0000 Signed Impressions: Service Date/Time: Friday, June 23, 2017 17:52 - CONCLUSION: No evidence of recent bony injury. Advanced oquendo compartmental osteoarthritis. Arnie Ponce MD Brain MRI 06/17/17 0000 Signed Impressions: Service Date/Time: May 08:16 - CONCLUSION: 1. Mild chronic changes with symmetric cortical atrophy and predominantly periventricular small vessel ischemic demyelination. 2. No acute intracranial process. 3. Chronic sinusitis in the left maxillary antra. Chucky Bills MD Lower Extremity CT 06/16/17 0000 Signed Impressions: Service Date/Time: May 07:58 - CONCLUSION: 1. Small minimally displaced anteromedial acetabular roof fracture, as above. Rosalio Wray MD Pending results at discharge: No Medications # of Antipsychotic meds at D/C: 1 Approp Antipsych med options 1 - Minimum of three failed multiple trials of monotherapy. 2 - Documented plan to taper to monotherapy due to previous use of multiple meds OR cross-taper in progress at D/C. 3 - Documentation of augmentation of Clozapine. 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 No noted psychomotor agitation or retardation. Mood "okay" affect is reactive, thought process is linear and goal oriented, thought content denies suicidal homicidal ideations, denies visual and auditory hallucinations, denies any delusions at time of interview. Insight limited, fair impulse control and judgment. Pt Condition on Discharge: Stable Discharge Disposition: Discharge to SNF Discharge Instructions Diet Instructions: Heart Healthy Diet Activities you can perform: Non Weight Bearing Other Activity Instructions: Patient to have non weight bearing on the left hip x 4 weeks. Scheduled Appointment: [facility] Discharge Time > 30 minutes Discharge/Advance Care Plan Health Problems: (1) Rakesh Bonnet syndrome (2) Unspecified psychosis Goals to promote your health * To prevent worsening of your condition and complications * To maintain your health at the optimal level Directions to meet your goals Take your medications as prescribed Follow your dietary instruction Follow activity as directed Keep your appointments as scheduled Take your immunizations and boosters as scheduled If your symptoms worsen call your PCP, if no PCP go to Urgent Care Center or Emergency Room For 24/ questions related to your inpatient stay or results of tests pending at discharge, please contact Dr. Jori Hernandez at Smoking is Dangerous to Your Health. Avoid second hand smoking Problem Qualifiers (1) Closed left acetabular fracture: Qualified Code: S32.485A - Closed nondisplaced dome fracture of left acetabulum , initial encounter Jori Hernandez MD Jun 24, 2017 18:00
== END 2017-06-24 13:20 | DRG 125 ==
LOC: H4EA 16:42 → H250 06-18 20:30
PROVIDERS: ADMIT Student in an Organized Health Care Education/Training Program; ATTEND Student in an Organized Health Care Education/Training Program
DX: H53.16 Psychophysical visual disturbances (principal); S32.482A Displaced dome fracture of left acetabulum, initial encounter for closed fracture; L89.150 Pressure ulcer of sacral region, unstageable; F03.90 Unspecified dementia, unspecified severity, without behavioral disturbance, psychotic disturbance, mood disturbance, and anxiety; E11.9 Type 2 diabetes mellitus without complications; H40.9 Unspecified glaucoma; I10 Essential (primary) hypertension; Z96.653 Presence of artificial knee joint, bilateral; E07.89 Other specified disorders of thyroid; W19.XXXA Unspecified fall, initial encounter; F06.4 Anxiety disorder due to known physiological condition; Z96.643 Presence of artificial hip joint, bilateral; F29 Unspecified psychosis not due to a substance or known physiological condition
CPT/HCPCS: 70551; 73564; 73700; 76700; 80048; 80053; 80061; 82140; 82550; 82948; 82977; 83036; 83735; 84439; 84480; 85025; 85027; 85610; 90471; 90732; 95819; G0009; G0378; J1644; J2060; J7030